=== PATIENT | male | born 1950 | race Caucasian/White ===

== ENCOUNTER 2018-03-07 21:32 | Observation (INO) | payer MEDICARE ==
[2018-03-07 22:09] LABS: ABS Basophils 0.1 10^3/ul (0-0.2); ABS Eosinophils 0.2 10^3/ul (0-0.6); ABS Lymphocytes 2.1 10^3/ul (1.0-4.8); ABS Monocytes 0.6 10^3/ul (0-0.8); ABS Neutrophils 2.6 10^3/ul (1.5-7.7); ABS Nucleated RBC 0 10^3/ul; Hematocrit 40 % (42-52); Hemoglobin 13.5 g/dl (14.0-18.0); Lymphocyte % 37.5 % (25-47); Mean Corpuscular HGB Conc 34 g/dl (31-36); Mean Corpuscular Hemoglobin 27 pg (27-31); Mean Corpuscular Volume 80 fL (80-94); Mean Platelet Volume 7.9 um3 (7.4-10.4); Nucleated Red Blood Cells % 0.1; Platelet Count 183 10^3/ul (150-450); Red Blood Count 5.01 10^6/ul (4.0-5.4); Red Cell Distribution Width 14 % (10.5-15); White Blood Count 5.5 10^3/ul (3.5-10.8)
[2018-03-07 22:20] LABS: INR 0.89 (0.77-1.02)
[2018-03-07 22:26] LABS: EGFR Non-African American 77.7 (>60)
[2018-03-08] MEDS ORDERED: Acetaminophen TAB* 325 MG PO PRN (01:56)
[2018-03-08] MEDS ORDERED: Ondansetron INJ* 2 MG/ML VIAL IV PRN (01:56)
[2018-03-08] MEDS ORDERED: Al Hydrox/Mg Hydrox/Simet LIQ* 30 ML UDC PO ONE (02:06)
[2018-03-08] MEDS ORDERED: Lidocaine 2% VISCOUS* 15 ML UDC PO ONE (02:06)
[2018-03-08] MEDS ORDERED: Potassium Chlor TAB* 20 MEQ TAB.ER PO ONE (02:12)
[2018-03-08] MEDS ORDERED: NS 0.9% 1000 ML* 1,000 ML IV SCH (02:15)
[2018-03-08] MEDS: Heparin VIAL(*) 5000 UNITS/ML VIAL (FIVE THOUSAND) SUBCUT SCH ×3 (05:20→21:22)
--- NOTE | 2018-03-08 05:33 | HP ---
CC: Dr. Larsen * HISTORY AND PHYSICAL: DATE OF ADMISSION: 03/08/18 PRIMARY CARE PROVIDER: Dr. Larsen. ATTENDING PHYSICIAN WHILE IN THE HOSPITAL: Dr. Singh * (report dictated by Timur Welsh NP). CHIEF COMPLAINT: Syncope. HISTORY OF PRESENT ILLNESS: Mr. Young is a 67-year-old male patient, who carries a history of pernicious anemia, hypertension, history of PVCs, micturition syncope, history of skin cancer, and GERD. He comes into the ED today stating that he was having an episode where he in the last couple of days he has been having skipped beats. He has known history of palpitations and PVCs. He also was having issues with reflux, epigastric pressure, and then he did have skipped beats and he was having indigestion-type discomfort. No chest pain or shortness of breath. He tonight had dinner, he drank a beer, started getting epigastric discomfort and pressure. He was belching. He was sitting down, watching TV. The next thing he knew, he woke up and his was over him crying and he said what happened and she said he fainted. He was out for about 20 seconds. He had no chest pain prior to or after. He knew where he was when he woke up. He denied any shortness of breath. He says he has been eating and drinking. His appetite has been good over the last few days. He denied having any pain or abdominal discomfort. He said that belching that he has been doing in the last couple of days. He said that he did not have any palpitations prior to this event tonight. He denied any recent fevers or chills. No vomiting or diarrhea. No abdominal discomfort. He came into the ED today because of this syncopal episode. We were asked to evaluate for admission. PAST MEDICAL HISTORY: Significant for: 1. Pernicious anemia. 2. Hypertension. 3. PVCs. 4. Micturition syncope. 5. Skin cancer. 6. GERD. MEDICATIONS: Home meds include: 1. Multivitamin 1 tablet daily. 2. B12 injection 1000 mcg IM monthly. 3. Atenolol 25 mg p.o. daily. ALLERGIES TO MEDICATIONS: Include SULFA, CIPRO. FAMILY HISTORY: Mother is 93 and she has a history of indigestion, she is still alive. Father has a history of melanoma. SOCIAL HISTORY: He does not smoke, rarely drinks alcohol. Surrogate decision maker is his . He is . REVIEW OF SYSTEMS: There is no documented fever. He denies having any significant weight change. There is no double vision. He denies having any rhinorrhea. There was no sore throat. No thyroid enlargement. Denies having any chest pain. There is palpitation. No shortness of breath. There is no orthopnea. There is no nocturnal dyspnea. He denies having any abdominal pain. He does admit to having epigastric pressure, burning sensation. He denied any nausea or vomiting. No dysuria, no frequency. No seizure. There was loss of consciousness. No pruritus, no skin ulceration. Review of 14 systems completed, all others negative. PHYSICAL EXAMINATION GENERAL: At this time, Mr. Young is a 67-year-old male patient. He is sitting in the ED stretcher. He does not appear to be in any acute distress. VITAL SIGNS: Blood pressure 137/68, pulse 62, respirations 18, O2 sat 96%, temperature 97.6. HEENT: Head: Atraumatic, normocephalic. Eyes: EOMs are intact. Sclerae are anicteric and not pale. Throat: Oral mucosa appears to be moist. No oropharyngeal erythema. NECK: Supple. LUNGS: Clear to auscultation bilaterally. No wheezes, rales, or rhonchi. HEART: Sounds S1, S2. Regular rate and rhythm. No murmurs, rubs, or gallops. ABDOMEN: Soft, flat, nontender. Bowel sounds were present. EXTREMITIES: Pulses were 2+ throughout. Moving all 4 extremities with 5/5 strength. NEUROLOGIC: The patient is awake, he is alert, he is oriented x3. His tongue is midline. Perl Developer were equal. He had no gross focal deficits. SKIN: Grossly intact. DIAGNOSTIC STUDIES/LAB DATA: Today, WBC of 5.5, RBC of 5.01, hemoglobin 13.5, hematocrit 40, platelet count of 183. INR 0.89, PTT of 26.4. Sodium 138, potassium 3.5, chloride 104, bicarb 27, BUN 18, creatinine 0.97, glucose 124, lactate 1.4, calcium 9. Total bili 0.5. Mag 2.2. AST 22, ALT 22, alk phos 66. Troponin was 0.00, repeat was 0. Albumin 3.8. He did have a chest x-ray obtained today. Under my review, I did not appreciate any acute infiltrates or pulmonary edema or effusions. EKG obtained today did show sinus bradycardia, rate of 48. No ST elevations or T- wave inversions. Reviewing previously, his heart rate was 79. Old medical records were reviewed. ASSESSMENT AND PLAN: Mr. Young is a 67-year-old male patient coming in to the emergency department today with complaints of syncopal episode. On evaluation today, he was known to be bradycardic when he first came in at 48. His heart rate now is in the 60s. In addition to this, it was also noted he is having premature ventricular contractions. We were asked to evaluate for admission. He will be admitted under observation status for: 1. Syncope. He has got multifactor etiology. He certainly could be having vasovagal syncope from the epigastric pain and discomfort. However, I do have concern about ischemia. I do think he deserves a stress test. In addition to this, the bradycardia may be contributing, so I have held his beta anton. We may need to cut back on that. In addition to this, he also has been having premature ventricular contractions, so I am questioning he was having any runs of ventricular tachycardia that may have contributed to this. So, I think a stress test is appropriate. Orthostatic. I did recommend a CT brain. The patient did refuse that, so at this point, we will hold off and we will also get orthostatic blood pressure on the patient, hold his beta anton, place him on telemetry, and continue to follow him. 2. Anemia. He can continue his meds as prescribed. His H and H is stable. 3. History of hypertension. Again, blood pressure is stable, it is now here in the 130s. Heart rate has been dipping into the 40s, so I am going to hold off on giving that beta anton for now, may need to lower it or consider another agent. 4. History of premature ventricular contractions. Again, he will be placed on telemetry. His mag was stable and potassium is stable. I will add on a TSH. 5. Gastroesophageal reflux disease and indigestion. He is not on a PPI. This ultimately could be considered. I am going to give him GI cocktail. 6. DVT prophylaxis. He will be placed on heparin subcu. 7. Code status. Full code. 8. Fluids, electrolytes, and nutrition. He will be n.p.o. for stress test in the morning. TIME SPENT: On the admission 60 minutes, greater than half the time was spent face- to-face with the patient obtaining my history and physical; other half time was spent going over the plan of care with the patient and implementing plan of care. I did discuss the plan of care with my attending, Dr. Singh; he is in agreement. TIMUR WELSH, GROUP HOME COUNSELOR [id number]/CPS #: [id number] SOURAV
[2018-03-08 06:26] LABS: ABS Basophils 0 10^3/ul (0-0.2); ABS Eosinophils 0 10^3/ul (0-0.6); ABS Monocytes 0.6 10^3/ul (0-0.8); ABS Nucleated RBC 0 10^3/ul; Eosinophil % 0.5 % (0-6); Hematocrit 41 % (42-52); Hemoglobin 14.1 g/dl (14.0-18.0); Lymphocyte % 15.1 % (25-47); Mean Corpuscular HGB Conc 35 g/dl (31-36); Mean Corpuscular Hemoglobin 28 pg (27-31); Mean Corpuscular Volume 80 fL (80-94); Nucleated Red Blood Cells % 0.1; Platelet Count 166 10^3/ul (150-450); Red Blood Count 5.12 10^6/ul (4.0-5.4); Red Cell Distribution Width 14 % (10.5-15); White Blood Count 6.7 10^3/ul (3.5-10.8)
--- NOTE | 2018-03-08 06:31 | ED ---
Patricia Barrera Rebecca, scribed for Nyasia Ewing MD on 03/07/18 at 2240 . Syncope/Near Syncope - HPI Summary HPI Summary: Pt is a 67 y/o M who presents to ED s/p syncopal episode. Earlier today while at home, the pt was watching t.v., and he leaned forward, fell back, unconscious. Episode was witnessed and the pt's reports that he was unconscious for about 15 seconds. Occurred while he was sitting down - no associated trauma. Pt currently feels significantly better. Additionally c/o N/ V. Notes PVCs and "a lot of burping" for the last few days which has been occurring intermittently for the last 10-15 years. Prior similar episodes - micturition syncope x2. Activities Concierge is Dr. Nunez. - History Of Current Complaint Chief Complaint: EDSyncope Time Seen by Provider: 03/07/18 22:21 Hx Obtained From: Patient Onset/Duration: Sudden Onset, Resolved Timing: Intermittent Episode Lasting - 15 seconds Context: Unwitnessed Activity At Onset: At Rest - Sitting, watching t.v. Associated Head Trauma: No Aggravating Factor(s): Nothing Alleviating Factor(s): Spontaneous Resolution Associated Signs And Symptoms: Other - N/V - Allergies/Home Medications Allergies/Adverse Reactions: Allergies Allergy/AdvReac Type Severity Reaction Status Date / Time Sulfa (Sulfonamide Allergy Swelling Verified 03/07/18 21:41 Antibiotics) Home Medications: Home Medications Atenolol TAB* [Tenormin TAB* 25 MG] 25 mg PO DAILY 03/07/18 [History Confirmed 03/07/18] Cyanocobalamin INJ * [Vitamin B12 INJ *] 1,000 mcg IM MONTHLY 03/07/18 [History Confirmed 03/07/18] Multivit-Min/FA/Lycopen/Lutein [Centrum Silver Men Tablet] 1 each PO DAILY 03/07 [History Confirmed 03/07/18] PMH/Surg Hx/FS Hx/Imm Hx Endocrine/Hematology History: Denies: Hx Anticoagulant Therapy, Hx Diabetes Cardiovascular History: Reports: Hx Hypertension, Other Cardiovascular Problems/ Disorders - PT.STATES ? 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 ~Patient is not in any acute respiratory distress. HEAD AND FACE: Normocephalic EYES: PERRLA, EOMI x 2. EARS: Hearing grossly intact. MOUTH: Oropharynx within normal limits. NECK: Supple, trachea is midline, no adenopathy, no JVD, no carotid bruit. CHEST: Symmetric, no tenderness at palpation LUNGS: Clear to auscultation bilaterally. No wheezing or crackles. CVS: Regular rate and rhythm, S1 and S2 present, no murmurs or gallops appreciated. ABDOMEN: Soft, non-tender. Bowel sounds are normal. No abdominal abnormal pulsations. EXTREMITIES: Full ROM in all major joints, no edema, no cyanosis or clubbing. NEURO: Alert and oriented x 3. No acute neurological deficits. Speech is normal and follows commands. SKIN: Dry and warm Triage Information Reviewed: Yes Vital Signs On Initial Exam: Initial Vitals Temp Pulse Resp BP Pulse Ox 97.6 F 54 16 116/63 99 03/07/18 21:38 03/07/18 21:38 03/07/18 21:38 03/07/18 21:38 03/07/18 21:38 Vital Signs Reviewed: Yes Diagnostics - Vital Signs Vital Signs Temp Pulse Resp BP Pulse Ox 03/07/18 21:38 97.6 F 54 16 116/63 99 - Laboratory Lab Results: Lab Results 03/07/18 03/07/18 03/07/18 Range/Units 21:58 21:58 21:58 WBC 5.5 (3.5-10.8) 10^3/ul RBC 5.01 (4.0-5.4) 10^6/ul Hgb 13.5 L (14.0-18.0) g/dl Hct 40 L (42-52) % MCV 80 (80-94) fL MCH 27 (27-31) pg MCHC 34 (31-36) g/dl RDW 14 (10.5-15) % Plt Count 183 (150-450) 10^3/ul MPV 7.9 (7.4-10.4) um3 Neut % (Auto) 47.5 (38-83) % Lymph % (Auto) 37.5 (25-47) % Mclean % (Auto) 11.0 H (0-7) % Eos % (Auto) 3.0 (0-6) % Baso % (Auto) 1.0 (0-2) % Absolute Neuts (auto) 2.6 (1.5-7.7) 10^3/ul Absolute Lymphs (auto) 2.1 (1.0-4.8) 10^3/ul Absolute Monos (auto) 0.6 (0-0.8) 10^3/ul Absolute Eos (auto) 0.2 (0-0.6) 10^3/ul Absolute Basos (auto) 0.1 (0-0.2) 10^3/ul Absolute Nucleated RBC 0 10^3/ul Nucleated RBC % 0.1 INR (Anticoag Therapy) 0.89 (0.77-1.02) APTT 26.4 (26.0-36.3) seconds Sodium 138 L (139-145) mmol/L Potassium 3.5 (3.5-5.0) mmol/L Chloride 104 (101-111) mmol/L Carbon Dioxide 27 (22-32) mmol/L Anion Gap 7 (2-11) mmol/L BUN 18 (6-24) mg/dL Creatinine 0.97 (0.67-1.17) mg/dL Est GFR ( Amer) 99.9 (>60) Est GFR (Non-Af Amer) 77.7 (>60) BUN/Creatinine Ratio 18.6 (8-20) Glucose 124 H (70-100) mg/dL Lactic Acid (0.5-2.0) mmol/L Calcium 9.0 (8.6-10.3) mg/dL Magnesium 2.2 (1.9-2.7) mg/dL Total Bilirubin 0.50 (0.2-1.0) mg/dL AST 22 (13-39) U/L ALT 22 (7-52) U/L Alkaline Phosphatase 66 (34-104) U/L Troponin I 0.00 (<0.04) ng/mL Total Protein 6.5 (6.4-8.9) g/dL Albumin 3.8 (3.2-5.2) g/dL Globulin 2.7 (2-4) g/dL Albumin/Globulin Ratio 1.4 (1-3) /08/15 Range/Units 21:58 WBC (3.5-10.8) 10^3/ul RBC (4.0-5.4) 10^6/ul Hgb (14.0-18.0) g/dl Hct (42-52) % MCV (80-94) fL MCH (27-31) pg MCHC (31-36) g/dl RDW (10.5-15) % Plt Count (150-450) 10^3/ul MPV (7.4-10.4) um3 Neut % (Auto) (38-83) % Lymph % (Auto) (25-47) % Mclean % (Auto) (0-7) % Eos % (Auto) (0-6) % Baso % (Auto) (0-2) % Absolute Neuts (auto) (1.5-7.7) 10^3/ul Absolute Lymphs (auto) (1.0-4.8) 10^3/ul Absolute Monos (auto) (0-0.8) 10^3/ul Absolute Eos (auto) (0-0.6) 10^3/ul Absolute Basos (auto) (0-0.2) 10^3/ul Absolute Nucleated RBC 10^3/ul Nucleated RBC % INR (Anticoag Therapy) (0.77-1.02) APTT (26.0-36.3) seconds Sodium (139-145) mmol/L Potassium (3.5-5.0) mmol/L Chloride (101-111) mmol/L Carbon Dioxide (22-32) mmol/L Anion Gap (2-11) mmol/L BUN (6-24) mg/dL Creatinine (0.67-1.17) mg/dL Est GFR ( Amer) (>60) Est GFR (Non-Af Amer) (>60) BUN/Creatinine Ratio (8-20) Glucose (70-100) mg/dL Lactic Acid 1.4 (0.5-2.0) mmol/L Calcium (8.6-10.3) mg/dL Magnesium (1.9-2.7) mg/dL Total Bilirubin (0.2-1.0) mg/dL AST (13-39) U/L ALT (7-52) U/L Alkaline Phosphatase (34-104) U/L Troponin I (<0.04) ng/mL Total Protein (6.4-8.9) g/dL Albumin (3.2-5.2) g/dL Globulin (2-4) g/dL Albumin/Globulin Ratio (1-3) Result Diagrams: 03/07/18 21:58 03/07/18 21:58 Lab Statement: Any lab studies that have been ordered have been reviewed, and results considered in the medical decision making process. - Radiology CXR Xray Interpretation: No Acute Changes - No PNA Radiology Interpretation Completed By: ED Physician - EKG 2141 Cardiac Rate: Bradycardia - 48 bpm EKG Rhythm: Sinus Bradycardia EKG Interpretation: Prolonged NV of 248 Course/Dx Assessment/Plan: Pt is a 67 y/o M who presents to ED s/p witnessed syncopal episode that lasted 15 seconds without any associated trauma, and additionally c/o N/V, PVCs and "a lot of burping." His workup is unremarkable. Given history of arrhythmia, will admit for syncope evaluation. Discussed case with the hospitalist. - Diagnoses Provider Diagnoses: Syncope - Physician Notifications Discussed Care of Patient With: Fito Singh Time Discussed With Above Provider: 00:37 Instructed by Provider To: Other - Accepts pt for admission. Discharge - Sign-Out/Discharge Documenting (check all that apply): Discharge/Admit/Transfer - Admit - Discharge Plan Condition: Stable Disposition: ADMITTED TO [facility] Referrals: Devin Larsen MD [Primary Care Provider] - The documentation as recorded by the Patricia casas Rebecca accurately reflects the service I personally performed and the decisions made by me, Nyasia Ewing MD.
[2018-03-08 06:42] LABS: EGFR Non-African American 82.6 (>60)
--- NOTE | 2018-03-08 07:34 | RAD ---
INDICATION: Chest pain COMPARISON: December 18, 2011 TECHNIQUE: An AP portable view obtained at 2210 hours is submitted. FINDINGS: Bones/Soft Tissues: There are no acute bony findings. Cardiomediastinal: The cardiomediastinal silhouette is normal. Lungs: There are no acute infiltrates. There is suspected mild chronic lingular airspace disease. Pleura: There are no pleural effusions. Other: None IMPRESSION: No active disease or interval change.
--- NOTE | 2018-03-08 13:49 | ECHO ---
Patient: SATISH CHIN [facility] Rec#: [id number] : 1950 Date: 03/08/2018 Age: 67y Height: 182.88 cm / 72.0 in Weight: 112.04 kg / 246.9 lbs Sex: M BSA: 2.33 Room#: [facility] Admit Date#: 03/08/2018 Type: Inpatient Referring: Pierce Welsh NP Reading: Hilda Reeves MD Transitional Care Nurse: Leanna Au RDCS CC: Devin Larsen MD Transthoracic Echocardiogram Indication: Syncope BP: 148/82 HR: 51 Rhythm: Bradycardia Findings History: HTN, pernicious anemia, PVCs, micturation syncope, GERD. Technical Comments: The study quality is fair. Completed at 1220. Left Ventricle: The left ventricular chamber size is normal. Moderate concentric left ventricular hypertrophy is observed. Global left ventricular wall motion and contractility are within normal limits. There is normal left ventricular systolic function. The estimated ejection fraction is 55-60%. Abnormal left ventricular diastolic function is observed. Abnormal left ventricular diastolic filling is observed, consistent with impaired relaxation. Left Atrium: The left atrium is mildly dilated. Right Ventricle: Moderator Band present. The right ventricle is mild to moderately dilated. The right ventricular global systolic function is normal. Right Atrium: The right atrium is moderately dilated. Aortic Valve: The aortic valve is trileaflet. The aortic valve leaflets are mildly thickened. There is mild aortic regurgitation. There is no evidence of aortic stenosis. Mitral Valve: The mitral valve leaflets are mildly thickened. There is prolapse of the posterior leaflet of the mitral valve. There is trace to mild mitral regurgitation. There is no evidence of mitral stenosis. Tricuspid Valve: The tricuspid valve leaflets are normal. There is a physiologic tricuspid regurgitation. The right ventricular systolic pressure is estimated at 19 mmHg. No pulmonary hypertension is noted. There is no tricuspid stenosis. Pulmonic Valve: The pulmonic valve appears normal. There is mild pulmonic regurgitation. There is no pulmonic stenosis. Pericardium: There is no significant pericardial effusion. A pericardial fat pad is visualized. Aorta: There is mild dilatation of the ascending aorta. There is no dilatation of the aortic arch. There is mild dilatation of the aortic root. Pulmonary Artery: The main pulmonary artery appears normal. Venous: The inferior vena cava appears normal in size. There is a greater than 50% respiratory change in the inferior vena cava dimension. Summary: There was not any prior study for comparison. Conclusions The left ventricular chamber size is normal. Moderate concentric left ventricular hypertrophy is observed. The estimated ejection fraction is 55-60%. Abnormal left ventricular diastolic function is observed. The left atrium is mildly dilated. There is mild aortic regurgitation. There is trace to mild mitral regurgitation. There is mild pulmonic regurgitation. Measurements Name Value Normal Range RVIDd (AP) 2D 3.3 cm (0.9 - 2.6) RVDdMajor (2D) 5 cm (2.2 - 4.4) RAd ISD 4CH 5.7 cm (3.4 - 4.9) RA (A4C)W 5.2 cm (2.9 - 4.6) IVSd (2D) 1.4 cm (0.6 - 1) LVPWd (2D) 1.3 cm (0.6 - 1) LVIDd (2D) 4.8 cm (3.6 - 5.4) LVIDs (2D) 3.3 cm - LV FS (2D) 33 % (25 - 45) Aortic Annulus 2.3 cm (1.4 - 2.6) Ao root diameter (2D) 3.8 cm (2.1 - 3.5) Ascending Ao 3.7 cm (2.1 - 3.4) Aortic arch 3 cm (1.8 - 3.4) LA dimension (AP) 2D 4.1 cm (2.3 - 3.8) LAd ISD 4CH 5.1 cm (2.9 - 5.3) LA ISD 4CH W 4.5 cm (2.5 - 4.5) Name Value Normal Range LA ESV SP 4CH (A/L) 89 ml - LA ESV SP 2CH (A/L) 58 ml - LA ESV BP (A/L) 78 ml - LA ESV BP (A/L) index 34 ml/m2 - LA ESV SP 4CH (MOD) 76 ml - LA ESV SP 2CH (MOD) 54 ml - Name Value Normal Range MV E-wave Vmax 0.56 m/sec - MV deceleration time 240.72 msec - MV A-wave Vmax 0.89 m/sec - MV E:A ratio 0.63 ratio - LV septal e' Vmax 0.08 m/sec - LV lateral e' Vmax 0.06 m/sec - LV E:e' septal ratio 7 ratio - LV E:e' lateral ratio 9.33 ratio - Name Value Normal Range AV Vmax 1.05 m/sec - AV VTI 25.91 cm - AV peak gradient 4.46 mmHg - AV mean gradient 2.25 mmHg - LVOT Vmax 1.02 m/sec - LVOT VTI 24.9 cm - LVOT peak gradient 4.17 mmHg - LVOT mean gradient 2.14 mmHg - AR PHT 746 msec - AR peak gradient 57 mmHg - EDUAR Vmax 0.78 m/sec - Name Value Normal Range TR Vmax 2 m/sec - TR peak gradient 16 mmHg - RAP 3 mmHg - RVSP 19 mmHg - IVC diameter 0.9 cm - Name Value Normal Range PV Vmax 0.89 m/sec - PV peak gradient 3.21 mmHg - IN end-diastolic Vmax 1.06 m/sec -
--- NOTE | 2018-03-08 14:04 | RAD ---
INDICATION: Chest pain COMPARISON: None TECHNIQUE: A single day SPECT protocol was utilized. Rest images were acquired following the intravenous injection of 10.7 millicuries of technetium 99m tetrofosmin. Exercise stress images were acquired following the intravenous administration of 25.4 millicuries of technetium 99m tetrofosmin. This examination is limited by lack of CT attenuation correction due to shoulder pain and decreased mobility. The patient was exercised to a peak heart rate of 155 which is 94 of age predicted maximum. FINDINGS: The tomographic images best show decreased activity in the lateral wall near the base the heart with findings suggestive of ischemia. There are no additional apparent defects or stress-induced or fixed nature. The cardiac chamber size is normal. There are no wall motion abnormalities. The ejection fraction is calculated at 58 percent during stress. IMPRESSION: DECREASED ACTIVITY IN THE LATERAL WALL SUGGESTIVE OF A LATERAL WALL INFARCT WITH SUSPECTED PUSHPA-INFARCT ISCHEMIA. ASSESSMENT: INTERMEDIATE-RISK Based on imaging criteria from ACC/AHA 2002 Guideline Update for the Management of Patients With Chronic Stable Angina Table 23. Noninvasive Risk Stratification. Reference. HIGH-RISK (GREATER THAN 3% ANNUAL MORTALITY RATE) - Severe resting left ventricular dysfunction (LVEF < 35%) - Severe exercise left ventricular dysfunction (exercise LVEF < 35%) - Stress-induced large perfusion defect (particularly if anterior) - Stress-induced multiple perfusion defects of moderate size - Large, fixed perfusion defect with LV dilation or increased lung uptake (thallium-201) - Stress-induced moderate perfusion defect with LV dilation or increased lung uptake (thallium-201) INTERMEDIATE-RISK (1%-3% ANNUAL MORTALITY RATE) - Mild/moderate resting left ventricular dysfunction (LVEF = 35% to 49%) - Stress-induced moderate perfusion defect without LV dilation or increased lung intake (thallium-201) LOW-RISK (LESS THAN 1% ANNUAL MORTALITY RATE) - Normal or small myocardial perfusion defect at rest or with stress
--- NOTE | 2018-03-08 16:03 | PN ---
Subjective Date of Service: 03/08/18 Interval History: Denies chest pain or shortness of breath, denies dizziness or lightheadedness. Denies abd pain, nausea, vomiting or diarrhea. Family History: Unchanged from Admission Social History: Unchanged from Admission Past Medical History: Unchanged from Admission Objective Active Medications: Acetaminophen (Tylenol Tab*) 650 mg PO Q4H PRN PRN Reason: FEVER/PAIN Heparin Sodium (Porcine) (Heparin Vial(*)) 5,000 units SUBCUT Q8HR JAM Last Admin: 03/08/18 13:38 Dose: Not Given Ondansetron HCl (Zofran Inj*) 4 mg IV Q6H PRN PRN Reason: NAUSEA Vital Signs - 8 hr 03/08/18 03/08/18 11:24 15:34 Temperature 97.4 F 97.7 F Pulse Rate 57 54 Respiratory 14 16 Rate Blood Pressure 141/75 138/71 (mmHg) O2 Sat by Pulse 98 98 Oximetry Oxygen Devices in Use Now: None Appearance: appears comfortable lying in bed, no acute distress Eyes: No Scleral Icterus Ears/Nose/Mouth/Throat: Clear Oropharnyx, Mucous Membranes Moist Neck: NL Appearance and Movements; NL JVP, Trachea Midline Respiratory: Symmetrical Chest Expansion and Respiratory Effort, Clear to Auscultation Cardiovascular: NL Sounds; No Murmurs; No JVD Abdominal: NL Sounds; No Tenderness; No Distention Extremities: No Edema, No Clubbing, Cyanosis Skin: No Rash or Ulcers Neurological: Alert and Oriented x 3, NL Gait, NL Muscle Strength and Tone Nutrition: Taking PO's Result Diagrams: 03/08/18 06:08 03/08/18 06:08 Additional Lab and Data: Lab Results 03/07/18 03/07/18 03/07/18 Range/Units 21:58 21:58 21:58 WBC 5.5 (3.5-10.8) 10^3/ul RBC 5.01 (4.0-5.4) 10^6/ul Hgb 13.5 L (14.0-18.0) g/dl Hct 40 L (42-52) % MCV 80 (80-94) fL MCH 27 (27-31) pg MCHC 34 (31-36) g/dl RDW 14 (10.5-15) % Plt Count 183 (150-450) 10^3/ul MPV 7.9 (7.4-10.4) um3 Neut % (Auto) 47.5 (38-83) % Lymph % (Auto) 37.5 (25-47) % Cocke % (Auto) 11.0 H (0-7) % Eos % (Auto) 3.0 (0-6) % Baso % (Auto) 1.0 (0-2) % Absolute Neuts (auto) 2.6 (1.5-7.7) 10^3/ul Absolute Lymphs (auto) 2.1 (1.0-4.8) 10^3/ul Absolute Monos (auto) 0.6 (0-0.8) 10^3/ul Absolute Eos (auto) 0.2 (0-0.6) 10^3/ul Absolute Basos (auto) 0.1 (0-0.2) 10^3/ul Absolute Nucleated RBC 0 10^3/ul Nucleated RBC % 0.1 INR (Anticoag Therapy) 0.89 (0.77-1.02) APTT 26.4 (26.0-36.3) seconds Sodium 138 L (139-145) mmol/L Potassium 3.5 (3.5-5.0) mmol/L Chloride 104 (101-111) mmol/L Carbon Dioxide 27 (22-32) mmol/L Anion Gap 7 (2-11) mmol/L BUN 18 (6-24) mg/dL Creatinine 0.97 (0.67-1.17) mg/dL Est GFR ( Amer) 99.9 (>60) Est GFR (Non-Af Amer) 77.7 (>60) BUN/Creatinine Ratio 18.6 (8-20) Glucose 124 H (70-100) mg/dL Lactic Acid (0.5-2.0) mmol/L Calcium 9.0 (8.6-10.3) mg/dL Magnesium 2.2 (1.9-2.7) mg/dL Total Bilirubin 0.50 (0.2-1.0) mg/dL AST 22 (13-39) U/L ALT 22 (7-52) U/L Alkaline Phosphatase 66 (34-104) U/L Troponin I 0.00 (<0.04) ng/mL Total Protein 6.5 (6.4-8.9) g/dL Albumin 3.8 (3.2-5.2) g/dL Globulin 2.7 (2-4) g/dL Albumin/Globulin Ratio 1.4 (1-3) /08/15 Range/Units 21:58 WBC (3.5-10.8) 10^3/ul RBC (4.0-5.4) 10^6/ul Hgb (14.0-18.0) g/dl Hct (42-52) % MCV (80-94) fL MCH (27-31) pg MCHC (31-36) g/dl RDW (10.5-15) % Plt Count (150-450) 10^3/ul MPV (7.4-10.4) um3 Neut % (Auto) (38-83) % Lymph % (Auto) (25-47) % Cocke % (Auto) (0-7) % Eos % (Auto) (0-6) % Baso % (Auto) (0-2) % Absolute Neuts (auto) (1.5-7.7) 10^3/ul Absolute Lymphs (auto) (1.0-4.8) 10^3/ul Absolute Monos (auto) (0-0.8) 10^3/ul Absolute Eos (auto) (0-0.6) 10^3/ul Absolute Basos (auto) (0-0.2) 10^3/ul Absolute Nucleated RBC 10^3/ul Nucleated RBC % INR (Anticoag Therapy) (0.77-1.02) APTT (26.0-36.3) seconds Sodium (139-145) mmol/L Potassium (3.5-5.0) mmol/L Chloride (101-111) mmol/L Carbon Dioxide (22-32) mmol/L Anion Gap (2-11) mmol/L BUN (6-24) mg/dL Creatinine (0.67-1.17) mg/dL Est GFR ( Amer) (>60) Est GFR (Non-Af Amer) (>60) BUN/Creatinine Ratio (8-20) Glucose (70-100) mg/dL Lactic Acid 1.4 (0.5-2.0) mmol/L Calcium (8.6-10.3) mg/dL Magnesium (1.9-2.7) mg/dL Total Bilirubin (0.2-1.0) mg/dL AST (13-39) U/L ALT (7-52) U/L Alkaline Phosphatase (34-104) U/L Troponin I (<0.04) ng/mL Total Protein (6.4-8.9) g/dL Albumin (3.2-5.2) g/dL Globulin (2-4) g/dL Albumin/Globulin Ratio (1-3) Assess/Plan/Problems-Billing Assessment: Mr. Young is a 67 y.o male with Pernicious anemia, HTN, PVCs, micturition syncope, skin cancer, GERD who presented to the emergency room after approx 20 second syncopal episode. - Patient Problems (1) Syncope Current Visit: Yes Status: Acute Code(s): R55 - SYNCOPE AND COLLAPSE SNOMED Code(s): 367881760 Comment: -echo EF within normal limits 55-60% - Nuclear stress showed- intermediate risk- DECREASED ACTIVITY IN THE LATERAL WALL SUGGESTIVE OF A LATERAL WALL INFARCT WITH SUSPECTED PUSHPA-INFARCT ISCHEMIA. - Consulted Cardiology - Patient will need cardiac cath- scheduled for tomorrow - Will place on statin therapy and ASA (2) Elevated TSH Current Visit: Yes Status: Acute Code(s): R94.6 - ABNORMAL RESULTS OF THYROID FUNCTION STUDIES SNOMED Code(s): 086877150 Comment: -TSH- 7.05, will add free T4 and T3- pending at this time - Patient does report weight gain (3) Hypertension Current Visit: Yes Status: Acute Code(s): I10 - ESSENTIAL (PRIMARY) HYPERTENSION SNOMED Code(s): 97999842 Comment: - will continue Atenolol (4) PVC (premature ventricular contraction) Current Visit: Yes Status: Acute Code(s): I49.3 - VENTRICULAR PREMATURE DEPOLARIZATION SNOMED Code(s): 79011804 Comment: - subsided with excercise - has had PVC's for many years and is seen by Dr. Nunez - Echo with mild MVP EF with 55-60 % (5) DVT prophylaxis Current Visit: Yes Status: Acute Code(s): OHH6313 - SNOMED Code(s): 135065535 Comment: - heparin subQ- patient is refusing (6) Full code status Current Visit: Yes Status: Acute Code(s): Z78.9 - OTHER SPECIFIED HEALTH STATUS SNOMED Code(s): 813524446 Status and Disposition: inpatient - cath tomorrow
[2018-03-08] MEDS ORDERED: Diazepam TAB(*) 5 MG PO ONE (17:30)
[2018-03-08] MEDS: Atenolol TAB* 25 MG PO SCH (17:58)
[2018-03-08] MEDS ORDERED: Aspirin TAB* 325 MG PO ONE (18:00)
[2018-03-08] MEDS ORDERED: Aspirin 81 mg CHEW TAB* 81 MG TAB.CHEW PO SCH (18:00)
--- NOTE | 2018-03-08 21:35 | CONS ---
CC: Dr. Nunez; Dr. Reeves; Hospitalist Service; Dr. Larsen CARDIOLOGY CONSULTATION REPORT: DATE OF CONSULT: 03/08/18 HISTORY OF PRESENT ILLNESS: I was asked by the hospitalist service to see this 67- year-old male patient who followed up with Dr. Nunez from cardiac standpoint with known history of PVCs. I was asked to see him because of syncope and abnormal nuclear Myoview stress test. The patient does have a known history of PVCs and history of systemic arterial hypertension, obesity, sleep apnea and hyperlipidemia. He was on atenolol beta-anton as an outpatient for his PVCs and hypertension. He said yesterday he was sitting after dinner and in chair watching TV and he passed out. He was brought into the emergency room and subsequently was hospitalized. He was ruled out for myocardial infarction by negative troponins. He underwent Myoview nuclear stress test and his EKG stress portion was abnormal, low to intermediate risk as per Dr. Hardy's interpretation. He did have a resting and recovery PVCs, although his PVCs were decreased during exercise part, but he had late recovery EKG changes inferolateral, specifically in leads II, III aVF and V5 to V6 with some subtle downsloping concerning, although he did have hypertensive response to exercise. The patient never had symptoms of chest pain. No orthopnea. No PNDs. No nausea. No vomiting in the past. No hematochezia. No skin rash. No abdominal pain. No history of myocardial infarction. No history of diabetes appreciated. No fever. No chills. No acute illness. Cardiology consult was further requested to evaluate and consideration to evaluate his abnormal nuclear Myoview stress test. PAST MEDICAL HISTORY: Includes pernicious anemia, systemic arterial hypertension, PVCs, hyperlipidemia, history of possible sleep apnea, although he was never tested, history of gastroesophageal reflux disease and skin cancer. MEDICATIONS: His medications as an outpatient include: 1. Atenolol 25 mg daily. 2. Vitamin B12 injection 1000 mcg intramuscular monthly. 3. Multivitamins daily. ALLERGIES: He is allergic to SULFA and CIPRO. FAMILY HISTORY: No family history of premature coronary artery disease. SOCIAL HISTORY: He drinks alcohol mildly. No history of illicit drug use. REVIEW OF SYSTEMS: Review of all other systems essentially is negative. PHYSICAL EXAM: He is awake, alert, and oriented. He is not in acute distress. chest pain free. His vitals reveal blood pressure 130/70; pulse 70, he is sinus rhythm. Head and Neck Exam: Normocephalic and atraumatic head. Ears, Nose, and Throat: Essentially benign. Neck: Supple. JVP is not elevated. No carotid bruits. No masses in the neck are appreciated. Chest: Clear to auscultation. No rales, no wheezes. No added sounds appreciated. Heart: Normal, regular S1, S2. No added sounds. No gallops. No rubs. Abdomen: Benign, obese. Positive bowel sounds. Extremities: No edema, no cyanosis, no clubbing. Skin exam is normal. Psych: Normal affect and mood. 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 DIAGNOSTIC STUDIES/LAB DATA: White blood cell is 6.7, hemoglobin 14.1, hematocrit 41, and platelets 166,000. His chemistry; sodium is 138, potassium 4.5, chloride 106, total CO2 of 31, BUN 16, creatinine 0.92. Troponins were 0. His EKG showed normal sinus rhythm. No acute ST-T changes. His echocardiogram showed him to have normal left ventricular systolic function and no obvious wall motion abnormality appreciated and mild aortic insufficiency, trace to mild mitral insufficiency and mild pulmonic insufficiency. IMPRESSION: The patient is a 67-year-old male patient with: 1. Presentation with syncope to be further evaluated in a setting of PVCs and abnormal nuclear Myoview stress test. 2. Abnormal nuclear Myoview stress test for inferolateral wall reversible ischemia was intermediate risk and abnormal by the exercise EKG portion as per Dr. Hardy, concerning for inferolateral ischemia, coronary artery disease. 3. Systemic arterial hypertension. 4. Hyperlipidemia. 5. Sleep apnea, although he was never tested. 6. Obesity. 7. Known history of frequent PVCs. PLAN: This patient needs a cardiac catheterization based on his syncope, ventricular arrhythmia and abnormal nuclear Myoview stress test, his EKG portion and the nuclear images portion. I had a lengthy talk with the patient and discussion about the above as well as I discussed him with Dr. Hardy at length who did talk and interviewed for the patient and I understand he is willing to proceed with the cardiac catheterization. Any further recommendations will be based on the results of his cardiac catheterization. Meanwhile, he is to continue on aspirin, beta-anton, statin treatment. Please refer to a separate full report as per Dr. Hardy. I answered all of his concerns and questions up to his satisfaction. More than half of at least 60 to 65 plus minutes was in the education and counseling mode , answering all of the above concerns and questions and making further recommendations. I discussed him with the hospitalist service. [id number]/[facility] #: [id number] SOURAV
[2018-03-09] MEDS ORDERED: NS 0.9% 1000 ML* 1,000 ML IV SCH ×2 (06:00→11:15)
[2018-03-09] MEDS ORDERED: Aspirin 81 mg CHEW TAB* 81 MG TAB.CHEW PO SCH (06:00)
[2018-03-09] MEDS ORDERED: fentaNYL* 50 MCG/ML 2 ML VIAL (100 MCG VIAL) ONE (08:22)
[2018-03-09] MEDS ORDERED: Heparin(*) 1000 UNIT/ML 10 ML VIAL CATH LAB IV ONE (08:22)
[2018-03-09] MEDS ORDERED: nitroGLYCERIN DRIP* 25,000 MCG/250 ML BTL ONE (08:23)
[2018-03-09] MEDS ORDERED: Iohexol 350 (CONTRAST) 200 ML MDV IV ONE ×2 (08:23→10:01)
[2018-03-09] MEDS ORDERED: Lidocaine 1% INJ* 10 MG/ML 30 ML SDV ONE (08:23)
[2018-03-09] MEDS ORDERED: Heparin 2 UNITS/ML IVPREMIX* 2,000 ML IV ONE (08:23)
[2018-03-09] MEDS ORDERED: Midazolam* 1 MG/ML 10 ML VIAL (10 MG) ONE (08:24)
[2018-03-09] MEDS ORDERED: VERAPAMIL 2.5 MG/ML 2 ML VIAL ** 5 mg/2 ml ONE (09:07)
[2018-03-09] MEDS ORDERED: Bivalirudin(*) 250 MG VIAL ONE (09:38)
[2018-03-09] MEDS ORDERED: Ticagrelor* 90 MG TAB PO ONE (09:53)
[2018-03-09] MEDS: Heparin VIAL(*) 5000 UNITS/ML VIAL (FIVE THOUSAND) SUBCUT SCH (09:54)
[2018-03-09] MEDS: Atenolol TAB* 25 MG PO SCH (11:29)
--- NOTE | 2018-03-09 11:51 | PN ---
Subjective Date of Service: 03/09/18 Interval History: denies chest pain or shortness of breath, Denies abd pain, n/v/d. reports that his PVC's subsided during the night but returned this AM after drinking water to take his aspirin. Family History: Unchanged from Admission Social History: Unchanged from Admission Past Medical History: Unchanged from Admission Objective Active Medications: Acetaminophen (Tylenol Tab*) 650 mg PO Q4H PRN PRN Reason: FEVER/PAIN Aspirin (Aspirin 81 Mg Chew Tab*) 81 mg PO DAILY [facility] Last Admin: 03/09/18 06:34 Dose: 81 mg Atenolol (Tenormin Tab*) 25 mg PO DAILY [facility] Last Admin: 03/09/18 11:29 Dose: Not Given Atorvastatin Calcium (Lipitor*) 20 mg PO 1700 [facility] Heparin Sodium (Porcine) (Heparin Vial(*)) 5,000 units SUBCUT Q8HR [facility] Last Admin: 03/09/18 09:54 Dose: Not Given Sodium Chloride (Ns 0.9% 1000 Ml*) 1,000 mls @ 100 mls/hr IV .per rate [facility] Last Admin: 03/09/18 06:17 Dose: 100 mls/hr Sodium Chloride (Ns 0.9% 1000 Ml*) 1,000 mls @ 125 mls/hr IV .per rate [facility] Stop: 03/09/18 15:14 Ondansetron HCl (Zofran Inj*) 4 mg IV Q6H PRN PRN Reason: NAUSEA Vital Signs - 8 hr 03/09/18 03/09/18 03/09/18 07:54 08:00 08:59 Temperature 97.8 F Pulse Rate 62 Respiratory 16 20 20 Rate Blood Pressure 131/70 (mmHg) O2 Sat by Pulse 97 Oximetry 03/09/18 03/09/18 03/09/18 10:39 10:45 10:52 Temperature 97.4 F Pulse Rate 59 Respiratory 17 13 14 Rate Blood Pressure 126/75 145/81 145/81 (mmHg) O2 Sat by Pulse 96 Oximetry 03/09/18 11:18 Temperature 97.4 F Pulse Rate Respiratory Rate Blood Pressure (mmHg) O2 Sat by Pulse Oximetry Oxygen Devices in Use Now: None Appearance: appears comfortable sitting on the bed, no acute distress, mildly anxious about pending Cardiac cath this AM. Eyes: No Scleral Icterus Ears/Nose/Mouth/Throat: Mucous Membranes Moist Neck: NL Appearance and Movements; NL JVP, Trachea Midline Respiratory: Symmetrical Chest Expansion and Respiratory Effort, Clear to Auscultation Cardiovascular: NL Sounds; No Murmurs; No JVD, No Edema Abdominal: NL Sounds; No Tenderness; No Distention Extremities: No Edema, No Clubbing, Cyanosis Skin: No Rash or Ulcers Neurological: Alert and Oriented x 3, NL Gait, NL Muscle Strength and Tone Nutrition: Taking PO's Result Diagrams: 03/08/18 06:08 03/08/18 06:08 Additional Lab and Data: Lab Results 03/07/18 03/07/18 03/07/18 Range/Units 21:58 21:58 21:58 WBC 5.5 (3.5-10.8) 10^3/ul RBC 5.01 (4.0-5.4) 10^6/ul Hgb 13.5 L (14.0-18.0) g/dl Hct 40 L (42-52) % MCV 80 (80-94) fL MCH 27 (27-31) pg MCHC 34 (31-36) g/dl RDW 14 (10.5-15) % Plt Count 183 (150-450) 10^3/ul MPV 7.9 (7.4-10.4) um3 Neut % (Auto) 47.5 (38-83) % Lymph % (Auto) 37.5 (25-47) % Grimes % (Auto) 11.0 H (0-7) % Eos % (Auto) 3.0 (0-6) % Baso % (Auto) 1.0 (0-2) % Absolute Neuts (auto) 2.6 (1.5-7.7) 10^3/ul Absolute Lymphs (auto) 2.1 (1.0-4.8) 10^3/ul Absolute Monos (auto) 0.6 (0-0.8) 10^3/ul Absolute Eos (auto) 0.2 (0-0.6) 10^3/ul Absolute Basos (auto) 0.1 (0-0.2) 10^3/ul Absolute Nucleated RBC 0 10^3/ul Nucleated RBC % 0.1 INR (Anticoag Therapy) 0.89 (0.77-1.02) APTT 26.4 (26.0-36.3) seconds Sodium 138 L (139-145) mmol/L Potassium 3.5 (3.5-5.0) mmol/L Chloride 104 (101-111) mmol/L Carbon Dioxide 27 (22-32) mmol/L Anion Gap 7 (2-11) mmol/L BUN 18 (6-24) mg/dL Creatinine 0.97 (0.67-1.17) mg/dL Est GFR ( Amer) 99.9 (>60) Est GFR (Non-Af Amer) 77.7 (>60) BUN/Creatinine Ratio 18.6 (8-20) Glucose 124 H (70-100) mg/dL Lactic Acid (0.5-2.0) mmol/L Calcium 9.0 (8.6-10.3) mg/dL Magnesium 2.2 (1.9-2.7) mg/dL Total Bilirubin 0.50 (0.2-1.0) mg/dL AST 22 (13-39) U/L ALT 22 (7-52) U/L Alkaline Phosphatase 66 (34-104) U/L Troponin I 0.00 (<0.04) ng/mL Total Protein 6.5 (6.4-8.9) g/dL Albumin 3.8 (3.2-5.2) g/dL Globulin 2.7 (2-4) g/dL Albumin/Globulin Ratio 1.4 (1-3) /08/15 Range/Units 21:58 WBC (3.5-10.8) 10^3/ul RBC (4.0-5.4) 10^6/ul Hgb (14.0-18.0) g/dl Hct (42-52) % MCV (80-94) fL MCH (27-31) pg MCHC (31-36) g/dl RDW (10.5-15) % Plt Count (150-450) 10^3/ul MPV (7.4-10.4) um3 Neut % (Auto) (38-83) % Lymph % (Auto) (25-47) % Grimes % (Auto) (0-7) % Eos % (Auto) (0-6) % Baso % (Auto) (0-2) % Absolute Neuts (auto) (1.5-7.7) 10^3/ul Absolute Lymphs (auto) (1.0-4.8) 10^3/ul Absolute Monos (auto) (0-0.8) 10^3/ul Absolute Eos (auto) (0-0.6) 10^3/ul Absolute Basos (auto) (0-0.2) 10^3/ul Absolute Nucleated RBC 10^3/ul Nucleated RBC % INR (Anticoag Therapy) (0.77-1.02) APTT (26.0-36.3) seconds Sodium (139-145) mmol/L Potassium (3.5-5.0) mmol/L Chloride (101-111) mmol/L Carbon Dioxide (22-32) mmol/L Anion Gap (2-11) mmol/L BUN (6-24) mg/dL Creatinine (0.67-1.17) mg/dL Est GFR ( Amer) (>60) Est GFR (Non-Af Amer) (>60) BUN/Creatinine Ratio (8-20) Glucose (70-100) mg/dL Lactic Acid 1.4 (0.5-2.0) mmol/L Calcium (8.6-10.3) mg/dL Magnesium (1.9-2.7) mg/dL Total Bilirubin (0.2-1.0) mg/dL AST (13-39) U/L ALT (7-52) U/L Alkaline Phosphatase (34-104) U/L Troponin I (<0.04) ng/mL Total Protein (6.4-8.9) g/dL Albumin (3.2-5.2) g/dL Globulin (2-4) g/dL Albumin/Globulin Ratio (1-3) Assess/Plan/Problems-Billing Assessment: Mr. Young is a 67 y.o male with Pernicious anemia, HTN, PVCs, micturition syncope, skin cancer, GERD who presented to the emergency room after approx 20 second syncopal episode. - Patient Problems (1) Syncope Current Visit: Yes Status: Acute Code(s): R55 - SYNCOPE AND COLLAPSE SNOMED Code(s): 613432759 Comment: -echo EF within normal limits 55-60% - Nuclear stress showed- intermediate risk- DECREASED ACTIVITY IN THE LATERAL WALL SUGGESTIVE OF A LATERAL WALL INFARCT WITH SUSPECTED PUSHPA-INFARCT ISCHEMIA. - Consulted Cardiology - cardiac cath- today - Will continue statin therapy and ASA (2) CAD (coronary artery disease), [place] coronary artery Current Visit: Yes Status: Acute Code(s): I25.10 - ATHSCL HEART DISEASE OF [place] CORONARY ARTERY W/O ANG PCTRS SNOMED Code(s): 5747796816105 Comment: Cardiac Cath- showed multi-vessel disease - will transfer to [facility] to Dr. Reynoso for CABG today - transfer set up by Dr. Reeves - continue ASA 81 mg daily - Continue Atenolol - continue atrovastatin (3) Elevated TSH Current Visit: Yes Status: Acute Code(s): R94.6 - ABNORMAL RESULTS OF THYROID FUNCTION STUDIES SNOMED Code(s): 672869634 Comment: -TSH- 7.05, - Free T4 WNL - T3 low at 0.85 - Patient does report weight gain - Would recommend follow up as outpatient (4) Hypertension Current Visit: Yes Status: Acute Code(s): I10 - ESSENTIAL (PRIMARY) HYPERTENSION SNOMED Code(s): 65364973 Comment: - will continue Atenolol (5) PVC (premature ventricular contraction) Current Visit: Yes Status: Acute Code(s): I49.3 - VENTRICULAR PREMATURE DEPOLARIZATION SNOMED Code(s): 79100981 Comment: - subsided with excercise - has had PVC's for many years and is seen by Dr. Nunez - Echo with mild MVP EF with 55-60 % (6) DVT prophylaxis Current Visit: Yes Status: Acute Code(s): GOW2720 - SNOMED Code(s): 422644191 Comment: - heparin subQ- patient is refusing (7) Full code status Current Visit: Yes Status: Acute Code(s): Z78.9 - OTHER SPECIFIED HEALTH STATUS SNOMED Code(s): 169175773 Status and Disposition: inpatient - cath tomorrow
--- NOTE | 2018-03-09 12:29 | CATH ---
CC: Dr. Leoncio Nunez; Dr. Devin Larsen; Dr. Agusto Gilmore, [facility], Department of Cardiovascular Surgery CARDIAC CATHETERIZATION REPORT: DATE OF PROCEDURE: 03/09/18 INDICATION FOR THE PROCEDURE: The patient with syncopal event out of hospital with abnormal exercise nuclear stress test suggesting an area of potential severe ischemia to the posterolateral wall. There was also suggestive findings of ischemia to the proximal inferior wall. PROCEDURE: Coronary arteriography, left heart catheterization, left ventriculography. The patient was interviewed and examined on the floor of the hospital where the risks and benefits were explained. He understood them and wished to proceed. The right radial artery was assessed prior to coming to the cardiovascular lab and found to be of an appropriate size for a right radial artery approach. APPROACH: Right radial artery. EQUIPMENT UTILIZED: 1. Right radial artery sheath - a 6-Frisian Glidesheath. 2. Diagnostic coronary arteriography - a 5-Frisian TIG4 curve diagnostic catheter. 3. Guidewire for exchanging catheters - a [place] curved 260 cm left exchange wire. 4. Left heart catheterization catheter - a 5-Frisian PIG Performa radial. LABORATORY RESULTS BEFORE PROCEDURE: BUN and creatinine 16 and 0.9, potassium 4.5, hemoglobin and hematocrit of 14.4 and 41, platelet count of 166,000. MEDICATIONS GIVEN DURING THE PROCEDURE: Radial artery cocktail including 3000 units of heparin, 300 mcg of nitroglycerin and 3 mg of verapamil intraarterial ( the patient had already received a full dose aspirin the night before and 81 mg of aspirin prior to coming to the hoisting laborer the day of the procedure). DESCRIPTION OF PROCEDURE: The patient was brought to the cardiovascular laboratory and a formal time-out was performed. The patient was prepped and draped in a sterile fashion and the right radial artery area was anesthetized with 1% lidocaine. The right radial artery was cannulated and the introducer was placed followed by the radial artery cocktail intraarterially. Diagnostic catheterization was performed utilizing the 5-Frisian TIG catheter and left heart catheterization was performed utilizing the 5-[place]risian PIG Performa radial catheter. Following this, the catheter was removed and a Vasc Band was placed for hemostasis and the reverse Barbeau was found to be AB. The patient was stable at the time of transfer to the intensive care unit. The results were shared with Dr. Reeves, the patient's primary associate professor of history. RESULTS: HEMODYNAMIC DATA: Central aortic pressure was recorded at 116/58 with a mean of 84, left ventricular pressure 118 with left ventricular end-diastolic pressure of 11. LEFT VENTRICULOGRAPHY: Performed in the ALICEA projection revealed symmetrical contraction of the left ventricle with no focal wall motion abnormality. Overall EF was 55%. No significant mitral regurgitation was identified. CORONARY ARTERIOGRAPHY: A. Left coronary artery: 1. Left main. Widely patent. 2. Left anterior descending artery. The left anterior descending artery had an eccentric plaque just after the first septal perforated that appeared in its worse view to be approximately 65% to 70%. The first diagonal branch coming off from that side had a 75% to 80% ostial lesion. The first diagonal branch had a mid narrowing that appeared to be as much as 45% to 50%. The continuation to the LAD had 2 areas of narrowing in its mid segment, which were approximately 45% to 50%. The distal portion of the LAD had no significant disease. 3. Circumflex artery - a nondominant vessel supplying a high trifurcation marginal branch very small in caliber. The first obtuse marginal branch appeared to have a long diffusely diseased segment in its proximal portion with narrowing as much as 85% perhaps to 90% in selected views. There was VIVIANE-2 flow down this vessel that suggested this was the culprit vessel of the abnormal stress test. The continuation of the circumflex supplied a low- lying bifurcating final obtuse marginal branch to superior branch of which had an 85% to 90% stenosis in the continuation that also had a hazy 85% obstruction. B. Right coronary artery - a dominant vessel supplying the PDA and multiple posterior left ventricular branches. The proximal to mid portion appeared to have a very eccentric 60% to 65% narrowing in the UZBEK projection. The PDA itself had an ostial 90% obstruction in its worse view. The PDA did not extend fully to the apical region, but bifurcated in its mid portion. Of note, the LAD did extend to the apex and wrap around on to the distal inferior wall. OVERALL ASSESSMENT: Normal left ventricular contractility with multivessel coronary artery disease as described above with preserved left ventricular systolic dysfunction with culprit vessel appearing to be a diffusely diseased first obtuse marginal branch with VIVIANE-2 flow. In the setting of his multivessel disease, a discussion was made about pursuing the possibility of bypass surgery to address the multiple vessels involved in order to do complete revascularization. At this point in time, the discussion was held with patient's primary associate professor of history , Dr. Reeves as well as the patient and a decision was made for open heart surgery in order to correct all of the significant diffuse coronary artery disease noted. The patient understood this and was willing to proceed with this. Dr. Reeves will be arranging transfer to set up bypass surgery for the patient. [id number]/[facility] #: [id number] MTDD
[2018-03-09 13:03] VITALS: BP 150/83
--- NOTE | 2018-03-09 13:11 | DS ---
AMENDED REPORT NOW INCLUDES COSIGNER DESIGNATION - ESIGNED BEFORE ADJUSTMENTS DISCHARGE/TRANSFER SUMMARY: DATE OF ADMISSION: 03/08/18. DATE OF TRANSFER: 03/09/18. ATTENDING PHYSICIAN: Dr. Cal Sevilla * (dictated by Melissa Ennis NP). PRIMARY CARE PROVIDER: Dr. Larsen. PRIMARY DIAGNOSES: 1. Syncope. 2. Multivessel coronary artery disease. SECONDARY DIAGNOSES: 1. Pernicious anemia. 2. Hypertension. 3. Premature ventricular contractions. 4. Skin cancer. 5. Gastroesophageal reflux disease. 6. Micturition syncope. STUDIES COMPLETED WHITE IN THE HOSPITAL: He had a chest x-ray on 03/07/18, radiologist's impression: No active disease or interval changes. Electrocardiogram on 03/07/18 showed sinus bradycardia at the rate of 48. Had a nuclear stress test on 03/08/18. Radiologist's impression: Decreased activity in the lateral wall suggestive of a lateral wall infarct with suspected shannon-infarct ischemia. Assessment was intermediate risk. Had transthoracic echocardiogram on 03/08/18. Conclusion: The left ventricular chamber size is normal. Moderate concentric left ventricular hypertrophy is observed. The estimated ejection fraction is 55% to 60%. Abnormal left ventricular diastolic function is observed. The left atrium is mildly dilated. There is mild aortic regurgitation. There is trace to mild mitral regurgitation. There is mild pulmonic regurgitation. Had a cardiac catheterization on 03/09/18, which showed multivessel coronary artery disease, please refer to cath report for full details. TRANSFER MEDICATIONS: 1. Aspirin 81 mg p.o. daily. 2. Atenolol 25 mg p.o. daily. 3. Atorvastatin 20 mg p.o. daily. 4. Normal saline IV at 100 cc per hour. HISTORY OF PRESENT ILLNESS/HOSPITAL COURSE: Mr. Young is a 67-year-old male patient who carries the history of pernicious anemia, hypertension, history of PVCs, micturition syncope, history of skin cancer, and GERD. He presented to the emergency room on 03/08/18 stating he was having an episode where in the last couple of days, he was having skipped beats. He has a known history of palpitations with PVCs. He also reports having issues of reflux, gastric pressure and then he did have skipped beats and was having indigestion-type discomfort. No chest pain or shortness of breath. He reported the evening he presented to the emergency room, he had dinner, he drank a beer, he started having epigastric discomfort and pressure. He was belching. He was sitting down watching TV and the next thing he knew he woke up with his crying over him and said what happened and she said he fainted. He reports that he was unresponsive for approximately 20 seconds. He denied any chest pain prior to or after the episode. He reports his appetite has been good overall. He denies having any pain or abdominal discomfort. He said that the belching, he had been doing for the last couple of days. He reports he did not have any palpitations prior to the event this evening. Denies any recent illnesses, fever, chills, nausea or vomiting. During his hospitalization, he had routine labs work drawn. His troponins were trended and remained flat at 0.00 x3. His TSH was elevated at 7.05. His free T4 was within normal limits at 0.70, total T3 was 0.85, mildly low. Sodium was 138, potassium was 4.5, chloride was 106, carbon dioxide was 31, glucose was 122. CBC was essentially normal. He did not have a CT of the head on admission , as he refused. He did have an echocardiogram and a nuclear stress tests and as well as a cardiac catheterization completed during his hospitalization. Cardiac catheterization showed multivessel coronary artery disease in need of surgical intervention. He was seen and evaluated by Cardiology and Interventional Cardiology during this hospitalization. Please refer to their full dictated consults. At this time, Mr. Young will be transferred to [facility] for cardiac bypass surgery. His condition is guarded at this time. The patient continues to deny chest pain or shortness of breath. He denies any diaphoresis. His vital signs have remained stable throughout his hospitalization. Last blood pressure was 145/81, temperature was 97.4, heart rate is 59, respirations are 14 , O2 saturation is 96% on room air. The patient has been advised of the findings of his cardiac catheterization and the need to transfer for cardiac bypass surgery. He is in agreement to this plan. Dr. Reeves from Cardiology has spoken to Dr. Reynoso at [facility] and the patient has been accepted for transfer to [facility]. The patient will need to have follow up for his elevated TSH level in the near future. This is summarization of his hospitalization. For further details, please see the entire medical record and consultation reports. TIME SPENT: Time spent on this transfer was approximately 45 minutes, greater than half that time was spent with the patient discussing the transfer plans and instructions. CONDITION ON TRANSFER: Guarded. MELISSA ENNIS, RAMEZ [id number]/CPS #: [id number] SOURAV
[2018-03-09] MEDS ORDERED: Atorvastatin* 20 MG TAB PO SCH (17:00)
== END 2018-03-09 13:00 | disposition short-term general hospital (02) ==
LOC: ED 21:32 → MEDTELE 03-08 01:54 → ICU 03-09 10:47
PROVIDERS: ADMIT Hospitalist; ATTEND Hospitalist
DX: R55 Syncope and collapse (principal); R11.2 Nausea with vomiting, unspecified; I25.10 Atherosclerotic heart disease of native coronary artery without angina pectoris; D64.9 Anemia, unspecified; I10 Essential (primary) hypertension; I49.3 Ventricular premature depolarization; C44.90 Unspecified malignant neoplasm of skin, unspecified; K21.9 Gastro-esophageal reflux disease without esophagitis; Z79.82 Long term (current) use of aspirin
CPT/HCPCS: 36415; 71045; 78452; 80048; 80053; 80061; 83036; 83605; 83735; 84439; 84443; 84479; 84484; 85025; 85379; 85610; 85730; 93005; 93017; 93306; 93458; 96374; 99284; A9270-GY; A9502; G0378; J0583; J1644; J2250; J3010

== ENCOUNTER 2018-03-20 13:31 | Observation (INO) | payer MEDICARE ==
[2018-03-20 14:44] LABS: ABS Basophils 0.1 10^3/ul (0-0.2); ABS Eosinophils 0.1 10^3/ul (0-0.6); ABS Monocytes 0.9 10^3/ul (0-0.8); ABS Neutrophils 6.2 10^3/ul (1.5-7.7); ABS Nucleated RBC 0 10^3/ul; Eosinophil % 1.2 % (0-6); Hematocrit 35 % (42-52); Hemoglobin 11.4 g/dl (14.0-18.0); Lymphocyte % 12.3 % (25-47); Mean Corpuscular HGB Conc 33 g/dl (31-36); Mean Corpuscular Hemoglobin 27 pg (27-31); Mean Corpuscular Volume 81 fL (80-94); Mean Platelet Volume 7.3 um3 (7.4-10.4); Nucleated Red Blood Cells % 0.1; Platelet Count 391 10^3/ul (150-450); Red Blood Count 4.31 10^6/ul (4.0-5.4); Red Cell Distribution Width 14 % (10.5-15); White Blood Count 8.3 10^3/ul (3.5-10.8)
--- NOTE | 2018-03-20 14:44 | RAD ---
HISTORY: Syncope COMPARISONS: March 07, 2018 VIEWS: 1: frontal portable view of the chest at 2:25 PM FINDINGS: LINES AND TUBES: None. CARDIOMEDIASTINAL SILHOUETTE: The cardiomediastinal silhouette is normal for portable technique. PLEURA: There is a moderate left pleural effusion. LUNG PARENCHYMA: There is confluent alveolar opacification of the left lower lung. ABDOMEN: The upper abdomen is clear. There is no subphrenic gas. BONES AND SOFT TISSUES: The patient is status post median sternotomy. IMPRESSION: LEFT LOWER LUNG ATELECTASIS VERSUS CONSOLIDATION WITH MODERATE LEFT PLEURAL EFFUSION.
[2018-03-20 15:00] LABS: EGFR Non-African American 73.3 (>60)
[2018-03-20 16:18] LABS: INR 1.44 (0.77-1.02)
[2018-03-20] MEDS ORDERED: NS 0.9% 500 ML* 500 ML IV ONE (16:32)
[2018-03-20] MEDS ORDERED: Warfarin TAB(*) 2 MG PO SCH (17:00)
--- NOTE | 2018-03-20 17:32 | ED ---
Pati Barrera Elizabeth, scribed for Ortiz Ellsworth MD on 03/20/18 at 1428 . Syncope/Near Syncope - HPI Summary HPI Summary: This patient is a 67 year old M presenting to [facility] upon referral from Dr. Reynoso following a syncopal episode at 05:30 this morning. The patient reports he was leaning over the side of the bed coughing when the episode occurred. The episode was witnessed and noted to last 3-5 seconds. The patient notes he felt a bit weaker than usual this morning, Symptoms aggravated by coughing. Patient reports cough, and laceration above his left eyebrow. Patient denies shortness of breath, weight gain, edema, headache, and melena. The patient had a cardiac bypass done on 03/11/2018 at [facility] and was discharged home on 03/15/2018. The patient notes that he had A-fib and PVCs at separate occasions during his previous hospitalization. The patient is taking Metoprolol, warfarin 4mg, amiodarone, Lasix, and Coumadin. - History Of Current Complaint Chief Complaint: EDSyncope Time Seen by Provider: 03/20/18 13:42 Hx Obtained From: Patient Onset/Duration: Sudden Onset, Resolved Timing: Seconds Context: Witnessed, Loss Of Consciousness - 3-5 seconds Activity At Onset: Other - coughing Aggravating Factor(s): Other - coughing Associated Signs And Symptoms: Pain - above left eyebrow, Weakness, Other - cough - Allergies/Home Medications Allergies/Adverse Reactions: Allergies Allergy/AdvReac Type Severity Reaction Status Date / Time Sulfa (Sulfonamide Allergy Swelling Verified 03/20/18 13:38 Antibiotics) Home Medications: Home Medications Amiodarone TAB* [Cordarone TAB*] 200 mg PO BID 03/20/18 [History Confirmed 03/20] Atorvastatin* [Lipitor*] 40 mg PO DAILY 03/20/18 [History Confirmed 03/20/18] Furosemide TAB* [Lasix TAB*] 40 mg PO DAILY 03/20/18 [History Confirmed 03/20/18 ] Metoprolol Tartrate TAB* [Lopressor TAB*] 50 mg PO BID 03/20/18 [History Confirmed 03/20/18] Potassium Chlor TAB* [Klor Con ER TAB*] 20 meq PO DAILY 03/20/18 [History Confirmed 03/20/18] Warfarin TAB(*) [Coumadin TAB(*)] 2 mg PO EVERY OTHER DAY 03/20/18 [History Confirmed 03/20/18] Warfarin TAB(*) [Coumadin TAB(*)] 4 mg PO EVERY OTHER DAY 03/20/18 [History Confirmed 03/20/18] PMH/Surg Hx/FS Hx/Imm Hx Endocrine/Hematology History: Denies: Hx Anticoagulant Therapy, Hx Diabetes Cardiovascular History: Reports: Hx Hypercholesterolemia, Hx Hypertension, Other Cardiovascular Problems/Disorders - PT.STATES ? AFIB Denies: Hx Angina, Hx Congestive Heart Failure, Hx Coronary Artery Disease, Hx Myocardial Infarction, Hx Valvular Heart Disease Respiratory History: Denies: Hx Asthma, Hx Chronic Obstructive Pulmonary Disease (COPD) Sensory History: Reports: Hx Contacts or Glasses Denies: Hx Hearing Aid Opthamlomology History: Reports: Hx Contacts or Glasses - Surgical History Surgery Procedure, Year, and Place: appy, tonsillectomy, cardiac bypass 03/11/18 Infectious Disease History: No Infectious Disease History: Denies: Hx Hepatitis, Hx Human Immunodeficiency Virus (HIV), Hx of Known/ Suspected MRSA, Hx Shingles, Hx Tuberculosis, Traveled Outside the [place] in Last 30 Days - Family History Known Family History: Positive: Other - A Fib - Social History Alcohol Use: Rare Substance Use Type: Reports: None Hx Tobacco Use: No Smoking Status (MU): Never Smoked Tobacco Review of Systems Negative: Fever, Chills Negative: Erythema Negative: Sore Throat Negative: Chest Pain Positive: Cough. Negative: Shortness Of Breath Negative: Abdominal Pain, Vomiting, Nausea Genitourinary: Other - NEGATIVE MELENA Negative: dysuria, hematuria Negative: Myalgia, Edema Positive: Other - laceration above left eyebrow. Negative: Rash Neurological: Other - NEGATIVE DIZZINESS Positive: Syncope. Negative: Headache All Other Systems Reviewed And Are Negative: Yes Physical Exam - Summary Physical Exam Summary: Constitutional: Well-developed, Well-nourished, Alert. (-) Distressed Skin: Warm, Dry HENT: Normocephalic; 1 cm laceration above left eyebrow Eyes: Conjunctiva normal Neck: Musculoskeletal ROM normal neck. (-) JVD, (-) Stridor, (-) Tracheal deviation Cardio: Rhythm regular, rate normal, Heart sounds normal; Intact distal pulses; The pedal pulses are 2+ and symmetric. Radial pulses are 2+ and symmetric. (-) Murmur Pulmonary/Chest wall: Effort normal. (-) Respiratory distress, (-) Wheezes, (-) Rales Abd: Soft, (-) Tenderness, (-) Distension, (-) Guarding, (-) Rebound Musculoskeletal: (-) Edema Lymph: (-) Cervical adenopathy Neuro: Alert, Oriented x3 Psych: Mood and affect Normal Triage Information Reviewed: Yes Vital Signs On Initial Exam: Initial Vitals Temp Pulse Resp BP Pulse Ox 97.7 F 80 18 155/86 97 03/20/18 13:34 03/20/18 13:34 03/20/18 13:34 03/20/18 13:34 03/20/18 13:34 Vital Signs Reviewed: Yes Procedures - Laceration/Wound Repair #1 Location: head - above left eyebrow Length, Depth and Shape: 1 cm long Laceration/Wound Explored: clean, no foreign body removed Closure: Skin Adhesive Diagnostics - Vital Signs Vital Signs Temp Pulse Resp BP Pulse Ox 03/20/18 14:00 77 21 95 03/20/18 13:48 85 20 131/81 97 03/20/18 13:34 97.7 F 80 18 155/86 97 - Laboratory Result Diagrams: 03/20/18 14:36 03/20/18 14:36 Lab Statement: Any lab studies that have been ordered have been reviewed, and results considered in the medical decision making process. - EKG 14:30 Cardiac Rate: NL - at 74 BPM EKG Rhythm: Sinus Rhythm - Additional Comments Diagnostic Additional Comments: Emergency bedside US Interpreted by Dr. Ellsworth Impression: no pericardial effusion Re-Evaluation - Re-Evaluation 1st re-eval Re-Evaluation Time: 14:15 Change: Unchanged Comment: lac repair performed. 2nd re-eval Re-Evaluation Time: 14:47 Change: Unchanged Comment: Discussed course of treatment with patient. Patient refused Brain CT AMA. Attempted to convince him to agree to it, but he still refused. 3rd re-eval Re-Evaluation Time: 15:27 Change: Unchanged Comment: Informed patient that Dr. Reynoso had been consulted and that his labs appeared normal. Asked him to reconsider the brain CT, he refused. 4th re-eval Re-Evaluation Time: 16:01 Change: Unchanged Comment: Discussed plan to admit the patient for observation. Course/Dx Course Of Treatment: An emergency bedside US was performed which revealed no pericardial effusion. An EKG reveals sinus rhythm at 74 BPM. Test results with no significant abnormalities. Patient refused brain CT AMA and was encouraged to reconsider multiple times to no avail. We discussed patient care with Dr. Agusto Reynoso, sewing machine attachment tester, and he recommended the local cardiology group be contacted. We discussed patient care with Dr. Haney, hospitalist, who recommended that the patient be admitted for observation. Patient will be admitted to [facility] for observation. The patient is agreeable with this plan. - Diagnoses Provider Diagnoses: Syncope - Physician Notifications Discussed Care of Patient With: Agusto Reynoso MD Time Discussed With Above Provider: 15:30 Instructed by Provider To: Other - At 15:30 discussed care of [address]. Dr. Reynoso, sewing machine attachment tester, recommended that the local cardiology group be contacted. At 15:50 discussed care of patient with, Dr. Haney, who recommended admitting the patient for observation Discharge - Sign-Out/Discharge Documenting (check all that apply): Discharge/Admit/Transfer - Discharge Plan Condition: Stable Disposition: ADMITTED TO [facility] Referrals: Devin Larsen MD [Primary Care Provider] - The documentation as recorded by the Pati casas Elizabeth accurately reflects the service I personally performed and the decisions made by , Ortiz Ellsworth MD.
[2018-03-20] MEDS ORDERED: Atorvastatin* 40 MG TAB PO SCH (18:00)
--- NOTE | 2018-03-20 18:00 | CONSULT ---
Subjective Date of Service: 03/20/18 Interval History: Date of admission and consult 03/20/2018 Service: Hospitalist Medical Office Supervisor: Dr. Nunez PMD; Dr. 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 He had post-op Afib and was placed on warfarin and amiodarone. He has been recovering relatively well. His last dose of lasix was this AM. He woke up and had to go to the bathroom first thing this AM. He was at side of bed coughing and caused incisional pain and had LOC without prodrome injuring above eye. He has had micturition syncope in the past when ill several times and one episode of syncope recently that prompted evaluation revealing multivessel CAD. He has been walking every day and denies any angina, dyspnea, edema, fever, chills or wound drainage.. He had some intermittent palpitations this weekend that were recognized as prior PVC's. He felt Afib at [facility] when he went into it distinctly and has not had symptoms similar to that. Allergies: Sulfa Antibiotics 07/11/16 Cipro 07/11/16 allergy list reviewed on 07/13/2017 PMH: Symptomatic PVC's Hyperlipidemia Syncope CAD squamous cell cancer neuropathy PAST SURGICAL HISTORY: 1. Status post 6-vessel CABG on 03/11/18. 2. 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 3. Status post tonsillectomy. 4. Status post appendectomy. FH: Father: Atrial Fibrillation, Melanoma. due to Melanoma - age 84. . Mother: Hypertension - (07/11/2016) (age 91 Years) alive as of Hypercholesterolemia. Siblings:1 - 1 sister - suicide 19yrs ago. SH: Marital: .Lives With: .Occupation: retired etired [employer]et.2 adult children. 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 lived in [place] for 15 years. Personal Habits: Smoking: Patient has never smoked.Cigarette Use: Never Smoked Cigarettes.Alcohol: Rarely consumes alcohol.Drug Use: Denies Drug Use Medications Active Medications: Amiodarone HCl (Cordarone Tab*) 200 mg PO BID JAM Aspirin (Aspirin Ec Tab*) 81 mg PO DAILY JAM Atorvastatin Calcium (Lipitor*) 40 mg PO 1800 JAM Metoprolol Tartrate (Lopressor Tab*) 50 mg PO BID [facility] Warfarin Sodium (Coumadin Tab(*)) 2 mg PO EVERY OTHER DAY JAM PRN Reason: Protocol Warfarin Sodium (Coumadin Tab(*)) 4 mg PO EVERY OTHER DAY JAM PRN Reason: Protocol Home Medications: Amiodarone TAB* [Cordarone TAB*] 200 mg PO BID 03/20/18 [History Confirmed 03/20] Aspirin EC TAB* [Ecotrin EC Low Dose 81 MG*] 81 mg PO DAILY 03/20/18 [History Confirmed 03/20/18]. jordan not been taking Atorvastatin* [Lipitor*] 40 mg PO DAILY 03/20/18 [History Confirmed 03/20/18] Cyanocobalamin INJ * [Vitamin B12 INJ *] 1,000 mcg IM MONTHLY 03/20/18 [History Confirmed 03/20/18] Furosemide TAB* [Lasix TAB*] 40 mg PO DAILY 03/20/18 [History Confirmed 03/20/18 ] Metoprolol Tartrate TAB* [Lopressor TAB*] 50 mg PO BID 03/20/18 [History Confirmed 03/20/18] Potassium Chlor TAB* [Klor Con ER TAB*] 20 meq PO DAILY 03/20/18 [History Confirmed 03/20/18] Warfarin TAB(*) [Coumadin TAB(*)] 2 mg PO EVERY OTHER DAY 03/20/18 [History Confirmed 03/20/18] Warfarin TAB(*) [Coumadin TAB(*)] 4 mg PO EVERY OTHER DAY 03/20/18 [History Confirmed 03/20/18] Review of Systems - Measurements Intake and Output: Intake and Output Last 24 Hours 03/18/18 03/19/18 03/20/18 03/21/18 06:59 06:59 06:59 06:59 Weight 238 lb - Review of Systems Constitutional Symptoms: Negative: Weight Gain, Weight Loss, Weakness, Fatigue, Fever, Night Sweats Dermatology: Negative: Rash, Skin Lesions, Skin Lumps HEENT: Negative: Change in Hearing, Vertigo Eyes: Negative: Change in Vision, Double Vision Thyroid: Positive: Palpitations Negative: Thyroid Nodule, Cold Intolerance, Heat Intolerance, Sweatiness, Tremor, Frequent Defecation, Constipation, Weight Loss, Weight Gain Pulmonary: Positive: Cough Negative: Sputum, Hemoptysis, Wheezing, Respiratory Distress, Shortness of Breath, COPD, Asthma, Exercise Intolerance, Home Oxygen Cardiology: Positive: Palpitations, Syncope Negative: Shortness of Breath, Swelling of Ankles, Peripheral Vascular Dis, Edema, Faintness, Claudication, Paroxysmal Nocturnal Dyspnea, Orthopnea Gastroenterology: Negative: Abdominal Pain, Nausea, Vomiting, Anorexia, Indigestion, Difficulty Swallowing, Heartburn, Constipation, Diarrhea, Blood in Stools, Change in Bowel Habits, Haematemesis, Melena Genital - Urinary: Negative: Dysuria, Hematuria, Polyuria Musculoskeletal: Negative: Joint Pain, Joint Stiffness, Arthritis Endocrinology: Positive: Obesity Negative: Diabetes, Hyperglycemia, Hypoglycemia, Calluses Hematologic/Lymphatic: Positive: Use of Anticoagulant, Use of Antiplatelet Drugs Neurology: Positive: Other Negative: Headaches, Migraines, Change in Vision, Diplopia, Dizziness, Change in Balancing, Change in Coordination, Change in Memory, Numbness\ Paresthesiae, Unexplained Weakness, Hx of Stroke\TIA, Hx Seizures Psychiatry: Negative: Unusual Anxiety, Suicidal Ideation Allergic/Immunologic: Negative: Hx HIV, Immunocompromise Review of Systems Statement: All other review of systems negative, unless stated above. Objective Vital Signs: Temp Pulse Resp BP Pulse Ox 97.7 F 72 18 127/64 95 03/20/18 13:34 03/20/18 17:00 03/20/18 17:00 03/20/18 16:48 03/20/18 17:00 Appearance: nad, pleasant Ears/Nose/Mouth/Throat: Clear Oropharnyx, Mucous Membranes Moist, - - laceration above eye Neck: NL Appearance and Movements; NL JVP Respiratory: Symmetrical Chest Expansion and Respiratory Effort, - - decreased breath sounds left base Cardiovascular: RRR, No Edema, - - no murmur or rub, sternotomy site healing well no drainage or erythema Abdominal: NL Sounds; No Tenderness; No Distention Extremities: No Edema, No Clubbing, Cyanosis, - - graft harvest sites no signs of infection Skin: No Rash or Ulcers Neurological: Alert and Oriented x 3 Laboratory Results: 03/20/18 14:36 03/20/18 14:36 INR (Anticoag Therapy) 1.44 (0.77-1.02) H 03/20/18 16:05 Total Bilirubin 0.60 mg/dL (0.2-1.0) 03/20/18 14:36 AST 25 U/L (13-39) 03/20/18 14:36 ALT 42 U/L (7-52) 03/20/18 14:36 Alkaline Phosphatase 95 U/L (34-104) 03/20/18 14:36 Total Protein 6.4 g/dL (6.4-8.9) 03/20/18 14:36 Albumin 3.1 g/dL (3.2-5.2) L 03/20/18 14:36 Globulin 3.3 g/dL (2-4) 03/20/18 14:36 Albumin/Globulin Ratio 0.9 (1-3) L 03/20/18 14:36 03/20/18 14:36 Troponin I 0.01 Diagnostic Imaging: Chest x-ray admission. Radiologist's impression: Left lower lung atelectasis versus consolidation with moderate left pleural effusion. echo 03/08/18: moderate lvh, lvef 55-60%, la mildly dilated, no significant valvular abnormalities nuc 03/08/2018: 7 minutes, no angina, late st depression. interpretation was lateral wall infarct with suspected shannon-infarct ischemia cath 03/08/18: Multivessel CAD, right radial Dr. Hardy, normal Lvef EKG Data: ekg admission: nsr, low voltage, non-specific precordial st/t changes these changes new since pre-op ekg 03/07/2018 Assessment/Plan 67 year old man with recent cabg presents with syncope in setting of lasix use, just sitting up in morning and coughing with pain. - Likely multifactorial syncope, unlikely tachyarrhythmia related, could have cardioinhibitory response to vagal episode component given prior history - Telemetry overnight - Check echo - Check orthostatics - I advised patient to start aspirin he was prescribed, has not been taking - d/c lasix and potassium (last day was today) - If above unremarkable can be discharged tomorrow - CXR noted, needs continued ambulation, we discussed cardiac rehab once sternum better healed, would add incentive spirometry, has CV surgery f/u planned. Thank you for allowing me to participate in the cardiovascular care of this patient please do not hesitate to contact me with questions or concerns.
[2018-03-20] MEDS: Metoprolol Tartrate TAB* 50 mg PO SCH (20:45)
[2018-03-20] MEDS: Aspirin EC TAB* 81 MG TAB.EC PO SCH (20:45)
[2018-03-20] MEDS: Amiodarone TAB* 200 MG PO SCH (20:45)
--- NOTE | 2018-03-20 21:28 | HP ---
CC: Devin Larsen MD * HISTORY AND PHYSICAL: DATE OF ADMISSION: 03/20/18 PRIMARY CARE PROVIDER: Devin Larsen MD ATTENDING PHYSICIAN: Lida Brown MD * (dictated by Leanna Haywood NP). CHIEF COMPLAINT: Syncopal episode. HISTORY OF PRESENT ILLNESS: Mr. Young is a 67-year-old male with past medical history significant for hypertension, PVCs, squamous cell carcinoma, syncope, atrial fibrillation, who recently underwent a coronary artery bypass graft in [place] on 03/11/18. The patient initially presented to [facility] on 03/08/18 after a syncopal episode, it was felt that this was multifactorial. He underwent a stress test showing areas of ischemia. He then underwent a cardiac catheterization showing multivessel disease. A decision was made to transfer the patient to [place] to undergo coronary artery bypass grafts. The patient had a 6-vessel coronary artery bypass graft on 03/11/18. The patient states he has been doing well since this procedure. He denies any fevers, chills, chest pain, shortness of breath, nausea, vomiting, diarrhea, abdominal pain. He denies any lightheadedness. The patient states that every day when he goes to get up, he has a lot of phlegm from lying on his back, so he sits on the side of his bed leaning forward and coughing to clear the phlegm. He states that this morning when he got up at 5:30 to urinate, he made it as far as sitting up on the side of the bed and coughing when he had a syncopal episode. He reports being unconscious for a few seconds. It is to note, that he has not been taking his aspirin as he didn't understand why he was on both Warfarin and aspirin. Due to his syncopal episode, he came to the emergency room for further evaluation. While in the emergency room, the patient had an EKG without significant findings. A chest x-ray showing left lung atelectasis versus consolidation and moderate left pleural effusion. He had a troponin of 0.01. He was found to be orthostatic and received 500 mL fluid bolus. His other labs were unremarkable. Due to the patient's syncopal episode, the hospitalists were asked to evaluate him for admission. PAST MEDICAL HISTORY: 1. Hypertension. 2. PVCs. 3. Squamous cell carcinoma. 4. Micturition syncope. 5. Atrial fibrillation. 6. Neuropathy in bilateral lower extremities. PAST SURGICAL HISTORY: 1. Status post 6-vessel CABG on 03/11/18. 2. 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 3. Status post tonsillectomy. 4. Status post appendectomy. MEDICATIONS: Include: 1. Potassium 20 mEq oral daily, last day for this was today. 2. Lopressor 50 mg oral twice daily. 3. Furosemide 40 mg oral daily, last day was today. 4. Lipitor 40 mg oral every evening. 5. Amiodarone 200 mg oral twice daily. 6. Warfarin alternating 4 mg and 2 mg every other day. 7. Vitamin B12 injection 1000 mcg intramuscularly monthly, the patient prescribes and self administers this to himself. 8. Aspirin 81 mg oral daily, the patient states he has not been taking this. ALLERGIES: CIPRO and SULFA. FAMILY HISTORY: The patient's mother is alive at 93. His father had a history of atrial fibrillation and melanoma. His paternal grandmother and maternal grandfather with a history of diabetes. SOCIAL HISTORY: The patient denies tobacco or recreational drug use. He occasionally drinks alcohol. His , Cristal Young, will be his surrogate decision maker in the event he is unable to make decisions for himself. REVIEW OF SYSTEMS: I performed an 11-point review of systems. All the pertinent positives and negatives are mentioned in the history of present illness. Remaining of the review systems are negative. PHYSICAL EXAMINATION GENERAL APPEARANCE: The patient is alert, pleasant, and appears to be in no acute distress. VITAL SIGNS: Temperature 97.7, heart rate 90, respiratory rate 21, O2 sat 96% on room air, blood pressure 121/77. HEENT: Normocephalic and atraumatic. Pupils are equal and reactive to light. Extraocular movements are intact. RESPIRATORY: There is no accessory muscle use. The lungs are clear to auscultation bilaterally. CARDIOVASCULAR: Regular rate and rhythm. S1, and S2 present. There are no murmurs, rubs, or gallops heard. ABDOMEN: Soft, nontender, and nondistended. There are bowel sounds present x4. EXTREMITIES: There is no lower extremity edema. DP and PT pulses are 2+ and symmetric. MUSCULOSKELETAL: There is no clubbing or cyanosis noted. The patient exhibits good strength in all extremities. NEUROLOGICAL: The patient is alert and oriented x4. Cranial nerves II through XII are grossly intact. PSYCHOLOGICAL: The patient is calm and cooperative. SKIN: There are no rashes or abnormalities seen. The patient has a healing sternal incision. Additionally, he has a laceration above his left eye that has been repaired in the emergency room. DIAGNOSTIC STUDIES/LABORATORY DATA: Sodium 137, potassium 3.9, chloride 100, CO2 of 30, BUN 16, creatinine 1.02, glucose 101. White blood cell count 8.3, hemoglobin 11.4, hematocrit 35, platelet count 391,000. Troponin 0.01. EKG shows a sinus rhythm, a rate of 74. There are no acute signs of ischemia. This EKG is similar to previous from 03/07/18. Chest x-ray from today. Radiologist's impression: Left lower lung atelectasis versus consolidation with moderate left pleural effusion. IMPRESSION: Mr. Young is a 67-year-old male with past medical history significant for hypertension, premature ventricular contractions, squamous cell skin cancer, syncope, atrial fibrillation, who is approximately 9 days status post 6-vessel coronary artery bypass grafting, who presented to the emergency room after a syncopal episode. He will be admitted as an observation for syncope. ASSESSMENT/PLAN: 1. Syncope. I suspect this is secondary to orthostasis. The patient is going to receive a 500 mL of saline in the emergency room. We will recheck orthostatic vitals in the morning, trend his troponins, check echocardiogram. Cardiology will consult on the patient due to his being so close to having a coronary artery bypass graft. The patient has declined a brain CT in the emergency room. 2. Atelectasis. The patient will be encouraged to cough and deep breathe and use an incentive spirometer. 3. Coronary artery disease. The patient will be continued on his home Lopressor, atorvastatin, and started on aspirin. 4. Neuropathy. The patient will be continued on his monthly vitamin B12. 5. Hypertension. The patient has been normotensive in the emergency room. He will be continued on his home Lopressor. 6. Paroxysmal atrial fibrillation. Per the patient, he had atrial fibrillation postoperatively. He will be continued on warfarin, amiodarone, and Lopressor. 7. Fluids, electrolytes, and nutrition. He will be on a heart-healthy diet. 8. Code status. Full code. 9. DVT prophylaxis. His INR is currently subtherapeutic. He will be continued on his warfarin. 10. Disposition. Observation. TIME SPENT: Time for this admission was approximately 60 minutes, greater than half of that was spent [id number] with the patient discussing medications, past medical history, the events leading up to his arrival today, performing a physical examination. The case has been reviewed with the attending, Dr. Brown, who agrees with the plan of care. Reviewed by ARIANA WILKS 03/21/18 [id number]/[facility] #: [id number] SOURAV
[2018-03-21 05:58] LABS: INR 1.57 (0.77-1.02)
[2018-03-21] MEDS ORDERED: Furosemide TAB* 40 MG PO SCH (09:00)
[2018-03-21] MEDS ORDERED: Potassium Chlor TAB* 20 MEQ TAB.ER PO SCH (09:00)
[2018-03-21] MEDS ORDERED: Atorvastatin* 40 MG TAB PO SCH (09:00)
[2018-03-21] MEDS: Aspirin EC TAB* 81 MG TAB.EC PO SCH (09:18)
[2018-03-21] MEDS: Amiodarone TAB* 200 MG PO SCH (09:28)
--- NOTE | 2018-03-21 10:44 | ECHO ---
Patient: SATISH CHIN [facility] Rec#: [id number] : 1950 Date: 03/21/2018 Age: 67y Height: 185.42 cm / 73.0 in Weight: 107.95 kg / 237.9 lbs Sex: M BSA: 2.32 Room#: 433 Admit Date#: 03/20/2018 Type: Inpatient Referring: Aleida Haywood NP, Leanna Reading: Shant Hardy MD Box Gluer: Cuca Castillo,ZAYCS,RDMS CC: Leoncio Nunez MD Transthoracic Echocardiogram Indication: Syncope BP: 112/56 HR: 67 Rhythm: NSR Findings History: S/P 6 vessel CABG, HTN, HLD, AFIB, premature beats Technical Comments: The study quality is good. Left Ventricle: The left ventricular chamber size is normal. Moderate concentric left ventricular hypertrophy is observed. Global left ventricular wall motion and contractility are within normal limits. The estimated ejection fraction is 55-60%. There is no consistent Doppler evidence of clinically significant diastolic dysfunction. Left Atrium: The left atrium is mildly dilated. Right Ventricle: The right ventricular chamber size and systolic function are within normal limits. Right Atrium: The right atrium is mildly dilated. Aortic Valve: The aortic valve is trileaflet. Systolic excursion of the aortic valve is normal. There is trace to mild aortic regurgitation. There is no evidence of aortic stenosis. Mitral Valve: The mitral valve leaflets are mildly thickened. There is no evidence of mitral regurgitation. There is no evidence of mitral stenosis. Tricuspid Valve: The tricuspid valve leaflets are normal. There is trace tricuspid regurgitation. Unable to estimate the right ventricular systolic pressure. Pulmonic Valve: The pulmonic valve appears normal. There is a trace pulmonic regurgitation. Pericardium: There is no significant pericardial effusion. A pericardial fat pad is visualized. A left pleural effusion is present. Aorta: There is no dilatation of the ascending aorta. There is mild dilatation of the aortic arch. There is mild dilatation of the aortic root. Pulmonary Artery: The main pulmonary artery appears normal. Venous: The inferior vena cava appears normal in size. Conclusions Moderate concentric left ventricular hypertrophy is observed. Global left ventricular wall motion and contractility are within normal limits. The estimated ejection fraction is 55-60%. The left atrium is mildly dilated. There is trace to mild aortic regurgitation. There is trace tricuspid regurgitation. There is a trace pulmonic regurgitation. A left pleural effusion is present. There is mild dilatation of the aortic arch. There is mild dilatation of the aortic root. Compared to report of study from 03/08/2018 the right ventricle and atrium do not appear enlarged in most views, a left pleural effusion is seen. Measurements Name Value Normal Range RVIDd (AP) 2D 3.1 cm (0.9 - 2.6) RVDdMajor (2D) 3.4 cm (2.2 - 4.4) RAd ISD 4CH 6.4 cm (3.4 - 4.9) RA (A4C)W 4.4 cm (2.9 - 4.6) IVSd (2D) 1.5 cm (0.6 - 1) LVPWd (2D) 1.5 cm (0.6 - 1) LVIDd (2D) 4.6 cm (3.6 - 5.4) LVIDs (2D) 2.8 cm - LV FS (2D) 38 % (25 - 45) Aortic Annulus 2.3 cm (1.4 - 2.6) Ao root diameter (2D) 3.7 cm (2.1 - 3.5) Ascending Ao 3.4 cm (2.1 - 3.4) Aortic arch 4.1 cm (1.8 - 3.4) LA dimension (AP) 2D 4.3 cm (2.3 - 3.8) LAd ISD 4CH 7.8 cm (2.9 - 5.3) LA ISD 4CH W 4.6 cm (2.5 - 4.5) Name Value Normal Range LA ESV SP 4CH (A/L) 89.86 ml - LA ESV SP 2CH (A/L) 41.51 ml - LA ESV BP (A/L) 71.74 ml - LA ESV BP (A/L) index 31 ml/m2 - LA ESV SP 4CH (MOD) 78.37 ml - LA ESV SP 2CH (MOD) 39.88 ml - Name Value Normal Range MV E-wave Vmax 0.7 m/sec - MV deceleration time 178 msec - MV A-wave Vmax 0.6 m/sec - MV E:A ratio 1.2 ratio - P. vein S-wave Vmax 0.4 m/sec - P. vein D-wave Vmax 0.5 m/sec - P. vein S:D Vmax ratio 0.7 ratio - P. vein A-wave duration 111 msec - LV septal e' Vmax 0.06 m/sec - LV lateral e' Vmax 0.05 m/sec - LV E:e' septal ratio 12 ratio - LV E:e' lateral ratio 14 ratio - Name Value Normal Range AV Vmax 1.4 m/sec - AV VTI 27.4 cm - AV peak gradient 8 mmHg - AV mean gradient 4.5 mmHg - LVOT Vmax 1.2 m/sec - LVOT VTI 26 cm - LVOT peak gradient 6 mmHg - LVOT mean gradient 3.8 mmHg - EDUAR Vmax 0.6 m/sec - Name Value Normal Range RAP 8 mmHg - IVC diameter 1.2 cm - Name Value Normal Range PV Vmax 0.8 m/sec - PV peak gradient 2.6 mmHg -
[2018-03-21 11:45] VITALS: BP 136/61
[2018-03-21] MEDS: Metoprolol Tartrate TAB* 50 mg PO SCH (12:58)
[2018-03-21] MEDS ORDERED: Warfarin TAB(*) 4 MG PO SCH (17:00)
--- NOTE | 2018-03-22 11:54 | DS ---
AMENDED REPORT NOW INCLUDES COSIGNER DESIGNATION - ESIGNED BEFORE ADJUSTMENTS DISCHARGE SUMMARY: DATE OF ADMISSION: 03/20/18. DATE OF DISCHARGE: 03/21/18. PATIENT OF: Lida Brown MD. ATTENDING HOSPITALIST: Dr. Lenard Presley.* (DICTATED BY ASIA GRACE) PRIMARY CARE PHYSICIAN: Dr. Devin Larsen. PRIMARY INFANT LEAD TEACHER: Dr. Leoncio Nunez. ADMISSION DIAGNOSES: 1. Syncopal episode. 2. Hypotension. 3. History of hypertension. 4. Premature ventricular contractions. 5. Squamous cell carcinoma. 6. Coronary artery disease. 7. Atrial fibrillation. DISCHARGE DIAGNOSES: 1. Syncopal episodes. 2. Hypotension. 3. History of hypertension. 4. Premature ventricular contractions. 5. Squamous cell carcinoma. 6. Coronary artery disease. 7. Atrial fibrillation. CHIEF COMPLAINT: Syncopal episode. HISTORY OF PRESENT ILLNESS: Mr. Young is a pleasant 67-year-old gentleman with past medical history significant for hypertension, PVCs, and coronary artery disease. He recently underwent coronary artery bypass graft in [place] on 03/11/18. He reports that he has been doing well since discharge form the hospital and has been taking Lasix for the past 5 days that will end today. He took his last dose of Lasix and shortly after that he noticed a syncopal episode at home. He reports that he did not have any headache or dizziness prior to his episode. He was basically having multiple episodes of cough and after which he felt dizzy and he passed out with his witnessing the event and said that he lost consciousness for about 2 seconds. He was able to regain consciousness, noticed a little area of ecchymosis on his left forehead, but was able to get up and denied any chest pain or any other associated symptoms. He presented to the emergency room and had an EKG done that showed no significant findings. His chest x-ray show evidence of atelectasis and moderate pleural effusion likely secondary to his recent surgery. His troponins were flat with 0.01 level. He was found to have an orthostatic hypotension and received an IV fluid bolus. His other labs were essentially unremarkable. He had laboratory workup that revealed a normal electrolytes and normal hemoglobin and hematocrit. Given his recent coronary artery bypass graft and his syncopal episode it was felt necessary to keep him overnight for observation. The patient was kept in the telemetry unit for observation. His vitals were monitored closely and he showed no evidence of bradycardia and continued to have no chest pain or any associated symptoms. His orthostatic blood pressure was obtained after he received IV fluid bolus and was noted to be within normal limits. We had a consultation with Dr. Martin Haney given again his recent bypass graft. He had an echocardiogram done that revealed good ejection fraction of 55% to 60% with no evidence of any valvular abnormality for a pericardial effusion. It was felt that the patient had his syncopal episodes due to either vasovagal response or orthostatic hypotension due to his recent use of Lasix and dehydration. This morning on exam, the patient is comfortable and would like to go home. His vitals were noted to be stable. His heart was regular rate and rhythm with no rubs, murmurs, or gallops. His lungs was clear to auscultation bilaterally. I discussed the case with Dr. Reeves prior to discharge, who evaluated the echocardiogram done yesterday and cleared the patient for discharge. We will cut his metoprolol dose in half to resume 25 mg twice daily and will resume his warfarin and other medications as usual. He is no longer on Lasix or potassium supplements at that point. DISCHARGE MEDICATIONS: Include: 1. Amiodarone 200 mg p.o. b.i.d. 2. Aspirin 81 mg p.o. q. daily. 3. Lipitor 40 mg p.o. q. daily. 4. Vitamin B12, 1000 mcg injection q. month. 5. Lopressor 25 mg p.o. b.i.d. 6. Coumadin 2 mg p.o. every other day alternating with warfarin 4 mg p.o. alternating with opposite days. PROBLEM LISTS: 1. Coronary artery disease. The patient is status post coronary artery bypass graft on 03/11/18 in [place]. Echo done yesterday revealed intact graft and no evidence of any cardiac event. 2. Syncope and fall. Likely orthostatic in nature due to dehydration secondary to use of Lasix for the past 5 days. I encourage p.o. oral intake and we will continue to keep him on metoprolol with half dose done at 25 mg p.o. b.i.d. until he sees Dr. Nunez in a couple of weeks. All his questions answered. The patient was stable for discharge to home today. ASIA GRACE [id number]/[facility] #: [id number] SOURAV
== END 2018-03-21 14:00 | disposition home or self-care (01) ==
LOC: ED 13:31 → MEDTELE 16:19
PROVIDERS: ADMIT Internal Medicine; ATTEND Internal Medicine
DX: R55 Syncope and collapse (principal); I95.9 Hypotension, unspecified; I10 Essential (primary) hypertension; I49.3 Ventricular premature depolarization; I25.10 Atherosclerotic heart disease of native coronary artery without angina pectoris; I48.0 Paroxysmal atrial fibrillation; Z95.1 Presence of aortocoronary bypass graft; Z79.899 Other long term (current) drug therapy; Z79.01 Long term (current) use of anticoagulants; Z79.82 Long term (current) use of aspirin; Z88.1 Allergy status to other antibiotic agents; Z88.2 Allergy status to sulfonamides; G62.9 Polyneuropathy, unspecified
CPT/HCPCS: 36415; 71045; 80053; 83605; 84484; 85025; 85610; 93005; 93306; 99283; A9270-GY; G0378

== ENCOUNTER 2018-04-25 03:54 | Emergency (ER) | payer MEDICARE ==
[2018-04-25] MEDS ORDERED: Aspirin 81 mg CHEW TAB* 81 MG TAB.CHEW PO ONE (04:03)
[2018-04-25] MEDS ORDERED: Diltiazem DRIP* 100 MG/100 ML ADDV.BAG IVPB ONE (04:03)
[2018-04-25] MEDS ORDERED: Diltiazem IV* 5 MG/ML 5 ML VIAL (for loading dose/IV Push) (25 MG) IV PUSH ONE (04:03)
[2018-04-25] MEDS ORDERED: NS 0.9% 1000 ML* 1,000 ML IV ONE (04:03)
[2018-04-25] MEDS ORDERED: Diltiazem IV* 5 MG/ML 5 ML VIAL (for loading dose/IV Push) (25 MG) ONE (04:05)
[2018-04-25] MEDS ORDERED: Diltiazem IV VIAL* 125 MG in NS 0.9% 100 ML* 100 ML IV STA (04:13)
[2018-04-25] MEDS ORDERED: Famotidine IV* 10 MG/ML 2 ML (20 mg) IV SLOW PU ONE (04:19)
[2018-04-25 04:38] LABS: ABS Basophils 0.1 10^3/ul (0-0.2); ABS Eosinophils 0.1 10^3/ul (0-0.6); ABS Lymphocytes 1.1 10^3/ul (1.0-4.8); ABS Monocytes 1.2 10^3/ul (0-0.8); ABS Neutrophils 6.1 10^3/ul (1.5-7.7); ABS Nucleated RBC 0 10^3/ul; Eosinophil % 1.3 % (0-6); Hematocrit 40 % (42-52); Hemoglobin 13.3 g/dl (14.0-18.0); Lymphocyte % 12.6 % (25-47); Mean Corpuscular HGB Conc 33 g/dl (31-36); Mean Corpuscular Hemoglobin 26 pg (27-31); Mean Corpuscular Volume 79 fL (80-94); Mean Platelet Volume 8.1 um3 (7.4-10.4); Nucleated Red Blood Cells % 0.1; Platelet Count 249 10^3/ul (150-450); Red Blood Count 5.12 10^6/ul (4.00-5.40); Red Cell Distribution Width 15 % (10.5-15); White Blood Count 8.5 10^3/ul (3.5-10.8)
[2018-04-25 04:42] LABS: INR 1.81 (0.77-1.02)
[2018-04-25 04:54] LABS: EGFR Non-African American 79.6 (>60)
--- NOTE | 2018-04-25 05:03 | ED ---
Nury Barrera Jade, scribed for Tobias Jackman MD on 04/25/18 at 0404 . HPI Chest Pain - HPI Summary HPI Summary: Pt is a 67 y/o male who presents to the ED c/o CP 6 weeks s/p CABG. He states 3 days ago he started to have GERD which has slowly worsened. Pt states at a certain point his GERD starts to affect his HR, and in the past has caused PVCs and AFib. Usually the pt will burp to release the pressure, which brings his HR back to normal. At 12:45 today he started to have 6/10 epigastric pain radiating to his chest. He states he can feel the palpitations, and denies any SOB or N/V. Pt states he burped for 3 hours, but it didnt help his HR slow. He does not take any medications for the GERD, and denies taking any medications tonight. Pt denies ever needing to be cardioverted. Pt takes Warfarin and ASA daily. - History of Current Complaint Hx Obtained From: Patient Onset/Duration: Started Hours Ago - 12:45, Still Present Timing: Constant Current Severity: Moderate Pain Intensity: 6 Pain Scale Used: 0-10 Numeric Chest Pain Location: Mid Sternal Chest Pain Radiates: Yes Chest Pain Radiates To:: Epigastric Character: Fast, Irregular Aggravating Factor(s): Nothing Alleviating Factor(s): Nothing Associated Signs and Symptoms: Negative: Shortness of Breath, Nausea, Vomiting - Additional Pertinent History Primary Care Physician: [id number] - Allergy/Home Medications Allergies/Adverse Reactions: Allergies Allergy/AdvReac Type Severity Reaction Status Date / Time ciprofloxacin Allergy Intermediate Itching Verified 04/25/18 04:18 Sulfa (Sulfonamide Allergy Swelling Verified 04/25/18 04:18 Antibiotics) PMH/Surg Hx/FS Hx/Imm Hx Endocrine/Hematology History: Denies: Hx Anticoagulant Therapy, Hx Diabetes Cardiovascular History: Reports: Hx Hypercholesterolemia, Hx Hypertension, Other Cardiovascular Problems/Disorders - PT.STATES ? AFIB Denies: Hx Angina, Hx Congestive Heart Failure, Hx Coronary Artery Disease, Hx Myocardial Infarction, Hx Peripheral Vascular Disease, Hx Valvular Heart Disease Respiratory History: Denies: Hx Asthma, Hx Chronic Obstructive Pulmonary Disease (COPD) GI History: Reports: Hx Gastroesophageal Reflux Disease Musculoskeletal History: Denies: Hx Arthritis Sensory History: Reports: Hx Contacts or Glasses Denies: Hx Hearing Aid Opthamlomology History: Reports: Hx Contacts or Glasses Neurological History: Denies: Hx Headaches, Hx Seizures, Hx Transient Ischemic Attacks (TIA) - Surgical History Surgery Procedure, Year, and Place: appy, tonsillectomy, cardiac bypass 03/11/18 Infectious Disease History: No Infectious Disease History: Denies: Hx Hepatitis, Hx Human Immunodeficiency Virus (HIV), Hx of Known/ Suspected MRSA, Hx Shingles, Hx Tuberculosis, Traveled Outside the [place] in Last 30 Days - Family History Known Family History: Positive: Other - A Fib - Social History Alcohol Use: Rare Substance Use Type: Reports: None Hx Tobacco Use: No Smoking Status (MU): Never Smoked Tobacco Review of Systems Positive: Palpitations, Chest Pain Negative: Shortness Of Breath Gastrointestinal: Other - heartburn Negative: Vomiting, Nausea All Other Systems Reviewed And Are Negative: Yes Physical Exam - Summary Physical Exam Summary: Appearance: Well appearing, no pain distress Skin: warm, dry, reflects adequate perfusion. Vein harvest site is well-healed. Head/face: normal Eyes: EOMI, HIRAL ENT: normal Neck: supple, non-tender Respiratory: CTA, breath sounds present Cardiovascular: Pulses rapid with irregularly irregular rhythm. No LE edema. No JVD. Abdomen: non-tender, soft. Sternotomy scar. Chest drain sites well-healed. Bowel Sounds: present Musculoskeletal: normal, strength/ROM intact Neuro: normal, sensory motor intact, A&Ox3 Triage Information Reviewed: Yes Vital Signs On Initial Exam: Initial Vitals Temp Pulse Resp BP Pulse Ox 98.1 F 166 20 131/90 93 04/25/18 03:56 04/25/18 03:56 04/25/18 03:56 04/25/18 03:56 04/25/18 03:56 Vital Signs Reviewed: Yes Diagnostics - Vital Signs Vital Signs Temp Pulse Resp BP Pulse Ox 04/25/18 03:56 98.1 F 166 20 131/90 93 - Laboratory Lab Results: Lab Results 04/25/18 04/25/18 04/25/18 Range/Units 04:18 04:19 04:19 WBC 8.5 (3.5-10.8) 10^3/ul RBC 5.12 (4.00-5.40) 10^6/ul Hgb 13.3 L (14.0-18.0) g/dl Hct 40 L (42-52) % MCV 79 L (80-94) fL MCH 26 L (27-31) pg MCHC 33 (31-36) g/dl RDW 15 (10.5-15) % Plt Count 249 (150-450) 10^3/ul MPV 8.1 (7.4-10.4) um3 Neut % (Auto) 70.8 (38-83) % Lymph % (Auto) 12.6 L (25-47) % [place] % (Auto) 14.6 H (0-7) % Eos % (Auto) 1.3 (0-6) % Baso % (Auto) 0.7 (0-2) % Absolute Neuts (auto) 6.1 (1.5-7.7) 10^3/ul Absolute Lymphs (auto) 1.1 (1.0-4.8) 10^3/ul Absolute Monos (auto) 1.2 H (0-0.8) 10^3/ul Absolute Eos (auto) 0.1 (0-0.6) 10^3/ul Absolute Basos (auto) 0.1 (0-0.2) 10^3/ul Absolute Nucleated RBC 0 10^3/ul Nucleated RBC % 0.1 INR (Anticoag Therapy) 1.81 H (0.77-1.02) Sodium 137 (135-145) mmol/L Potassium 3.7 (3.5-5.0) mmol/L Chloride 101 (101-111) mmol/L Carbon Dioxide 26 (22-32) mmol/L Anion Gap 10 (2-11) mmol/L BUN 17 (6-24) mg/dL Creatinine 0.95 (0.67-1.17) mg/dL Est GFR ( Amer) 96.3 (>60) Est GFR (Non-Af Amer) 79.6 (>60) BUN/Creatinine Ratio 17.9 (8-20) Glucose 122 H (70-100) mg/dL Lactic Acid (0.5-2.0) mmol/L Calcium 9.0 (8.6-10.3) mg/dL Total Bilirubin 0.90 (0.2-1.0) mg/dL AST 12 L (13-39) U/L ALT 12 (7-52) U/L Alkaline Phosphatase 87 (34-104) U/L Troponin I 0.03 (<0.04) ng/mL B-Natriuretic Peptide ( - 100) pg/mL Total Protein 6.5 (6.4-8.9) g/dL Albumin 3.7 (3.2-5.2) g/dL Globulin 2.8 (2-4) g/dL Albumin/Globulin Ratio 1.3 (1-3) Vitamin B12 Pending TSH Pending 04/25/18 04/25/18 Range/Units 04:19 04:19 WBC (3.5-10.8) 10^3/ul RBC (4.00-5.40) 10^6/ul Hgb (14.0-18.0) g/dl Hct (42-52) % MCV (80-94) fL MCH (27-31) pg MCHC (31-36) g/dl RDW (10.5-15) % Plt Count (150-450) 10^3/ul MPV (7.4-10.4) um3 Neut % (Auto) (38-83) % Lymph % (Auto) (25-47) % [place] % (Auto) (0-7) % Eos % (Auto) (0-6) % Baso % (Auto) (0-2) % Absolute Neuts (auto) (1.5-7.7) 10^3/ul Absolute Lymphs (auto) (1.0-4.8) 10^3/ul Absolute Monos (auto) (0-0.8) 10^3/ul Absolute Eos (auto) (0-0.6) 10^3/ul Absolute Basos (auto) (0-0.2) 10^3/ul Absolute Nucleated RBC 10^3/ul Nucleated RBC % INR (Anticoag Therapy) (0.77-1.02) Sodium (135-145) mmol/L Potassium (3.5-5.0) mmol/L Chloride (101-111) mmol/L Carbon Dioxide (22-32) mmol/L Anion Gap (2-11) mmol/L BUN (6-24) mg/dL Creatinine (0.67-1.17) mg/dL Est GFR ( Amer) (>60) Est GFR (Non-Af Amer) (>60) BUN/Creatinine Ratio (8-20) Glucose (70-100) mg/dL Lactic Acid 1.0 (0.5-2.0) mmol/L Calcium (8.6-10.3) mg/dL Total Bilirubin (0.2-1.0) mg/dL AST (13-39) U/L ALT (7-52) U/L Alkaline Phosphatase (34-104) U/L Troponin I (<0.04) ng/mL B-Natriuretic Peptide 98 ( - 100) pg/mL Total Protein (6.4-8.9) g/dL Albumin (3.2-5.2) g/dL Globulin (2-4) g/dL Albumin/Globulin Ratio (1-3) Vitamin B12 TSH Result Diagrams: 04/25/18 04:19 04/25/18 04:18 Lab Statement: Any lab studies that have been ordered have been reviewed, and results considered in the medical decision making process. - Radiology CXR Xray Interpretation: No Acute Changes - Cardiomegaly, small left pleural effusion. Improved from previous EKG. Impending official radiology report. Radiology Interpretation Completed By: ED Physician - EKG 03:45 Cardiac Rate: Tachycardia - 141 bpm EKG Rhythm: Atrial Fibrillation EKG Interpretation: Nl axis, low voltage, minimal lateral ST depression Re-Evaluation - Re-Evaluation First Eval Re-Evaluation Time: 05:03 Change: Improved - Subxiphoid/epigastric discomfort now gone. Heart rate down into the 110s. Chest Pain Course/Dx - Course Course Of Treatment: Patient with recent cardiac bypass surgery with intermittent reflux symptoms that have caused atrial fibrillation in the past. He is maintained on Coumadin and was previously on amiodarone after surgery. Today, he presents with rapid atrial fibrillation and with rates of 140-160. Diltiazem bolus and drip initiated. Improvement of the rate. No significant chest pain other than epigastric discomfort. This resolved with Pepcid. Hospitalist contacted and will evaluate the patient at bedside and admit. Cardiology in the morning. - Chest Pain Differential Diagnosis/HQI/PQRI: Acute AR, ACS, Angina, Other: - Rapid A. fib - Diagnoses Provider Diagnoses: Chest pain, Atrial fibrillation with rapid ventricular response - Provider Notifications Discussed Care Of Patient With: Fito Singh Time Discussed With Above Provider: 04:16 Instructed by Provider To: Admit As Inpatient - Dr. Singh will see pt in the ED and accept pt for admission. - Critical Care Time Critical Care Time: 30-74 min - CCT is EXCLUSIVE of separately billable procedures. Discharge - Sign-Out/Discharge Documenting (check all that apply): Discharge/Admit/Transfer - Admit - Discharge Plan Condition: Guarded Disposition: ADMITTED TO [facility] Referrals: Devin Larsen MD [Primary Care Provider] - - Billing Disposition and Condition Condition: GUARDED Disposition: Admitted to [facility] The documentation as recorded by the Nury casas Jade accurately reflects the service I personally performed and the decisions made by , Tobias Jackman MD.
--- NOTE | 2018-04-25 08:52 | RAD ---
INDICATION: Chest pain COMPARISON: Most recent comparison chest x-rays dated March 20, 2018 TECHNIQUE: Single AP portable view of the chest was obtained. FINDINGS: Image quality is compromised due to the relative inferiority of a portable chest x-ray. Postsurgical changes include sternotomy wires and surgical clips overlying the mediastinum. There is [id number] cardiomegaly. There is density obscuring the left lung base and obscuring the left hemidiaphragm. Visualized bones are normal for the patient's age. IMPRESSION: There is density obscuring the left hemidiaphragm similar in appearance to the previous chest x-ray possibly representing a moderate to large left pleural effusion. Additional chronic findings are described above as well.
[2018-04-25] MEDS ORDERED: Metoprolol Tartrate TAB* 50 mg PO SCH ×2 (10:00→21:00)
[2018-04-25 11:53] VITALS: BP 122/70
[2018-04-25] MEDS ORDERED: Amiodarone TAB* 200 MG PO SCH (12:00)
--- NOTE | 2018-04-25 14:33 | CONS ---
CC: Dr. Larsen; Dr. Nunez CONSULTATION REPORT: DATE OF CONSULTATION: 04/25/18 HISTORY OF PRESENT ILLNESS: This 67-year-old man presented with palpitations. He was in his usual [facility] the day before admission. About 1:15 in the morning, he had been asleep, he was woken up by what he describes as GERD. He said he had some pressure and he had to belch a lot and he stat es usually this has in the past brought on atrial fibrillation. He waited several hours to see if it will go away. He got up and walked around, he was not dizzy. He finally came to the emergency room and he was still in atrial fibrillation. EKG showed a rate of 141. He was placed on diltiazem drip. A few hours later, he converted to sinus rhythm. He continues to feel fine. He could tell that he feels actually much better now that he is in sinus rhythm. I note that he had 3 troponin levels in [facility] emergency room, all of which were within normal limits. I note the patient had 6 bypass grafts at [facility] on 03/11/18. He had atrial fibrillation the day of surgery. He was placed on warfarin and amiodarone. The amiodarone was discontinued about 10 days ago. He is still on warfarin. The patient does not smoke. He does not abuse alcohol. He really did nothing different yesterday. He did have the first day of cardiac rehab, which he states was very low level and gave him no proble ms at all. He did some arm bicycle work and some treadmill exercise and some other exercises without any difficulty. He does not drink much caffeine. PHYSICAL EXAMINATION: Really unrevealing. His vital signs at 10 a.m. were blood pressure 112/67, O2 sat 94% on room air, heart rate 67, temperature 98.1 on arrival at the emergency room. Physical examination was unrevealing. The patient was alert and comfortable, breathing easily. He h ad no discomfort. He had a median sternotomy scar. There is no pedal edema or calf tenderness. I discussed the case with Dr. Nunez. He is going to [facility] another month of amiodarone. He will take 200 mg twice a day for 5 days and 200 mg once a day for 25 days. He will have his INR checked in 2 days at the hospital and have it again checked next week by Dr. Larsen. Dr. Nunez is ordering an event monitor for him and will see him in followup in the office in 10 to 14 days. [id number]/[facility] #: [id number]
== END 2018-04-25 11:55 | disposition short-term general hospital (02) ==
LOC: ED 03:54
DX: R07.9 Chest pain, unspecified (principal); I48.91 Unspecified atrial fibrillation; I51.7 Cardiomegaly; Z79.01 Long term (current) use of anticoagulants; Z79.82 Long term (current) use of aspirin; Z88.3 Allergy status to other anti-infective agents; Z88.0 Allergy status to penicillin; Z95.1 Presence of aortocoronary bypass graft
CPT/HCPCS: 36415; 71045; 80053; 82607; 83605; 83880; 84443; 84484; 85025; 85610; 93005; 96361; 96374; 96375; 99284; A9270-GY

== ENCOUNTER 2018-04-26 19:19 | Emergency (ER) | payer MEDICARE ==
[2018-04-26] MEDS ORDERED: Omeprazole CAP* 20 MG ONE (21:37)
[2018-04-26] MEDS ORDERED: Omeprazole CAP* 20 MG PO ONE (21:40)
[2018-04-26 22:21] LABS: ABS Basophils 0 10^3/ul (0-0.2); ABS Eosinophils 0.1 10^3/ul (0-0.6); ABS Lymphocytes 1.3 10^3/ul (1.0-4.8); ABS Neutrophils 5.5 10^3/ul (1.5-7.7); ABS Nucleated RBC 0 10^3/ul; Hematocrit 39 % (42-52); Hemoglobin 12.8 g/dl (14.0-18.0); Mean Corpuscular HGB Conc 33 g/dl (31-36); Mean Corpuscular Hemoglobin 26 pg (27-31); Mean Corpuscular Volume 79 fL (80-94); Mean Platelet Volume 7.9 um3 (7.4-10.4); Nucleated Red Blood Cells % 0; Platelet Count 256 10^3/ul (150-450); Red Blood Count 4.95 10^6/ul (4.00-5.40); Red Cell Distribution Width 15 % (10.5-15); White Blood Count 7.9 10^3/ul (3.5-10.8)
[2018-04-26 22:33] LABS: INR 1.95 (0.77-1.02)
--- NOTE | 2018-04-26 23:57 | ED ---
Nury Barrera Jade, scribed for Davonte Moulton on 04/26/18 at 2204 . Abdominal Pain/Male - HPI Summary HPI Summary: Pt is a 67 y/o male who presents to the ED c/o abdominal pain. Pt states that whenever he eats anything, he goes into AFib, has PVCs, lightheadedness, tachycardia, and severe burping 30 minutes later. He also gets sharp epigastric pain rated a 7/10 in severity that feels like a spasm, which resolves to a 2/ 10. He states that he had 6 CABG 6 weeks ago, so is worried about his heart. He has been having the symptoms for 4 days, and was admitted to [facility] 2 days ago but released because he converted. Pt is on Xyralto and Warfarin, and was given Pepsid in the hospital 2 days ago which has not helped. Tonight all he ate was a yogurt, which set off his cardiac symptoms. Pt denies any PMHx of VA, gallstones, or chronic AFib. - History of Current Complaint Chief Complaint: EDAbdPain Stated Complaint: ABD PAIN/AFIB Time Seen by Provider: 04/26/18 21:06 Hx Obtained From: Patient Onset/Duration: Gradual Onset, Lasting Days - 4, Still Present Timing: Intermittent Severity Currently: Moderate Pain Intensity: 4 Pain Scale Used: 0-10 Numeric Location: Epigastric Radiates: No Character: Other: - Spasm Aggravating Factor(s): Food Alleviating Factor(s): Spontaneous Resolution Associated Signs And Symptoms: Positive: Other - Burping, AFib, lightheadedness - Allergies/Home Medications Allergies/Adverse Reactions: Allergies Allergy/AdvReac Type Severity Reaction Status Date / Time ciprofloxacin Allergy Intermediate Itching Verified 04/26/18 19:31 Sulfa (Sulfonamide Allergy Swelling Verified 04/26/18 19:31 Antibiotics) PMH/Surg Hx/FS Hx/Imm Hx Endocrine/Hematology History: Denies: Hx Anticoagulant Therapy, Hx Diabetes Cardiovascular History: Reports: Hx Hypercholesterolemia, Hx Hypertension, Other Cardiovascular Problems/Disorders - PT.STATES ? AFIB Denies: Hx Angina, Hx Atrial Fibrillation, Hx Congestive Heart Failure, Hx Coronary Artery Disease, Hx Myocardial Infarction, Hx Peripheral Vascular Disease, Hx Valvular Heart Disease Respiratory History: Denies: Hx Asthma, Hx Chronic Obstructive Pulmonary Disease (COPD) GI History: Reports: Hx Gastroesophageal Reflux Disease History: Denies: Other Problems/Disorders - Gallstones Musculoskeletal History: Denies: Hx Arthritis Sensory History: Reports: Hx Contacts or Glasses Denies: Hx Hearing Aid Opthamlomology History: Reports: Hx Contacts or Glasses Neurological History: Denies: Hx Headaches, Hx Seizures, Hx Transient Ischemic Attacks (TIA) - Surgical History Surgery Procedure, Year, and Place: appy, tonsillectomy, cardiac bypass 03/11/18 Infectious Disease History: No Infectious Disease History: Denies: Hx Hepatitis, Hx Human Immunodeficiency Virus (HIV), Hx of Known/ Suspected MRSA, Hx Shingles, Hx Tuberculosis, Traveled Outside the [place] in Last 30 Days - Family History Known Family History: Positive: Other - A Fib - Social History Alcohol Use: Rare Substance Use Type: Reports: None Hx Tobacco Use: No Smoking Status (MU): Never Smoked Tobacco Review of Systems Positive: Palpitations, Other - AFib, PVCs, tachycardia Positive: Abdominal Pain - Epigastric, Other - Burping Neurological: Other - Lightheadedness All Other Systems Reviewed And Are Negative: Yes Physical Exam - Summary Physical Exam Summary: Appearance: Well appearing, no pain distress Skin: warm, dry, reflects adequate perfusion Head/face: normal Eyes: EOMI, HIRAL ENT: normal Neck: supple, non-tender Respiratory: CTA, breath sounds present Cardiovascular: RRR, pulses symmetrical Abdomen: non-tender, soft Bowel: present Musculoskeletal: normal, strength/ROM intact Neuro: normal, sensory motor intact, A&Ox3 Triage Information Reviewed: Yes Vital Signs On Initial Exam: Initial Vitals Temp Pulse Resp BP Pulse Ox 97.3 F 76 16 124/79 90 04/26/18 19:29 04/26/18 19:29 04/26/18 19:29 04/26/18 19:29 04/26/18 19:29 Vital Signs Reviewed: Yes Diagnostics - Vital Signs Vital Signs Temp Pulse Resp BP Pulse Ox 04/26/18 19:29 97.3 F 76 16 124/79 90 - Laboratory Lab Results: Lab Results 04/26/18 04/26/18 04/26/18 Range/Units 22:12 22:12 22:12 WBC 7.9 (3.5-10.8) 10^3/ul RBC 4.95 (4.00-5.40) 10^6/ul Hgb 12.8 L (14.0-18.0) g/dl Hct 39 L (42-52) % MCV 79 L (80-94) fL MCH 26 L (27-31) pg MCHC 33 (31-36) g/dl RDW 15 (10.5-15) % Plt Count 256 (150-450) 10^3/ul MPV 7.9 (7.4-10.4) um3 Neut % (Auto) 70.0 (38-83) % Lymph % (Auto) 16.0 L (25-47) % [place] % (Auto) 12.6 H (0-7) % Eos % (Auto) 1.0 (0-6) % Baso % (Auto) 0.4 (0-2) % Absolute Neuts (auto) 5.5 (1.5-7.7) 10^3/ul Absolute Lymphs (auto) 1.3 (1.0-4.8) 10^3/ul Absolute Monos (auto) 1.0 H (0-0.8) 10^3/ul Absolute Eos (auto) 0.1 (0-0.6) 10^3/ul Absolute Basos (auto) 0 (0-0.2) 10^3/ul Absolute Nucleated RBC 0 10^3/ul Nucleated RBC % 0 INR (Anticoag Therapy) 1.95 H (0.77-1.02) APTT 32.7 (26.0-36.3) seconds Sodium 138 (135-145) mmol/L Potassium 4.0 (3.5-5.0) mmol/L Chloride 100 L (101-111) mmol/L Carbon Dioxide 29 (22-32) mmol/L Anion Gap 9 (2-11) mmol/L BUN 13 (6-24) mg/dL Creatinine 1.00 (0.67-1.17) mg/dL Est GFR ( Amer) 90.7 (>60) Est GFR (Non-Af Amer) 75.0 (>60) BUN/Creatinine Ratio 13.0 (8-20) Glucose 111 H (70-100) mg/dL Lactic Acid (0.5-2.0) mmol/L Calcium 9.3 (8.6-10.3) mg/dL Total Bilirubin 1.10 H (0.2-1.0) mg/dL AST 13 (13-39) U/L ALT 13 (7-52) U/L Alkaline Phosphatase 75 (34-104) U/L Troponin I 0.03 (<0.04) ng/mL Total Protein 7.2 (6.4-8.9) g/dL Albumin 3.7 (3.2-5.2) g/dL Globulin 3.5 (2-4) g/dL Albumin/Globulin Ratio 1.1 (1-3) Lipase < 10 L (11.0-82.0) U/L 04/26/18 Range/Units 22:12 WBC (3.5-10.8) 10^3/ul RBC (4.00-5.40) 10^6/ul Hgb (14.0-18.0) g/dl Hct (42-52) % MCV (80-94) fL MCH (27-31) pg MCHC (31-36) g/dl RDW (10.5-15) % Plt Count (150-450) 10^3/ul MPV (7.4-10.4) um3 Neut % (Auto) (38-83) % Lymph % (Auto) (25-47) % [place] % (Auto) (0-7) % Eos % (Auto) (0-6) % Baso % (Auto) (0-2) % Absolute Neuts (auto) (1.5-7.7) 10^3/ul Absolute Lymphs (auto) (1.0-4.8) 10^3/ul Absolute Monos (auto) (0-0.8) 10^3/ul Absolute Eos (auto) (0-0.6) 10^3/ul Absolute Basos (auto) (0-0.2) 10^3/ul Absolute Nucleated RBC 10^3/ul Nucleated RBC % INR (Anticoag Therapy) (0.77-1.02) APTT (26.0-36.3) seconds Sodium (135-145) mmol/L Potassium (3.5-5.0) mmol/L Chloride (101-111) mmol/L Carbon Dioxide (22-32) mmol/L Anion Gap (2-11) mmol/L BUN (6-24) mg/dL Creatinine (0.67-1.17) mg/dL Est GFR ( Amer) (>60) Est GFR (Non-Af Amer) (>60) BUN/Creatinine Ratio (8-20) Glucose (70-100) mg/dL Lactic Acid 1.7 (0.5-2.0) mmol/L Calcium (8.6-10.3) mg/dL Total Bilirubin (0.2-1.0) mg/dL AST (13-39) U/L ALT (7-52) U/L Alkaline Phosphatase (34-104) U/L Troponin I (<0.04) ng/mL Total Protein (6.4-8.9) g/dL Albumin (3.2-5.2) g/dL Globulin (2-4) g/dL Albumin/Globulin Ratio (1-3) Lipase (11.0-82.0) U/L Result Diagrams: 04/26/18 22:12 04/26/18 22:12 Lab Statement: Any lab studies that have been ordered have been reviewed, and results considered in the medical decision making process. - Ultrasound No standard instances Ultrasound Interpretation: No Acute Changes - 23:00 No acute findings. ED physician reviewed radiology report. Ultrasound Interpretation Completed By: Radiologist Abdominal Pain Fem Course/Dx - Course Course Of Treatment: Pt is a 67 y/o male c/o abdominal pain, palpitations, and burping after eating, who was released from [facility] 2 days ago after converting. He states that he had 6 CABG 6 weeks ago, so is worried about his heart. A physical exam was normal. An abdominal US revealed no acute findings. Pt denied a CXR and EKG, stating that they will be negative. Blood work was obtained. He did not want to be admitted, and wants to follow up with outpatient. Final dx is abdominal pain, and pt is discharged. He is prescribed Pantoprazole. Pt is agreeable with this plan and is to follow up with his PCP in 3 days. - Diagnoses Differential Diagnosis/HQI/PQRI: ACS, Gall Bladder Disease Provider Diagnoses: Abdominal pain Discharge - Sign-Out/Discharge Documenting (check all that apply): Discharge/Admit/Transfer - Discharge - Discharge Plan Condition: Stable Disposition: HOME Prescriptions: Pantoprazole TAB (NF) [Protonix TAB (NF)] 40 mg PO DAILY #30 tab Patient Education Materials: Abdominal Pain (ED) Referrals: Devin Larsen MD [Primary Care Provider] - 3 Days - Billing Disposition and Condition Condition: STABLE Disposition: Home The documentation as recorded by the Nury casas Jade accurately reflects the service I personally performed and the decisions made by Kenney arredondo Emmanuel.
[2018-04-27 00:01] VITALS: BP 100/84
--- NOTE | 2018-04-27 09:11 | RAD ---
Indication: Right upper quadrant pain. Real-time sonography of the right upper quadrant was performed. The liver measures 15.9 cm in length. No focal lesions or intrahepatic ductal dilatation is noted. The gallbladder demonstrates no gallstones, pericholecystic fluid or wall thickening. Common duct measures 0.4 cm. The right kidney measures 10.4 x 6.3 x 4.9 cm with no hydronephrosis. The pancreas is obscured. IMPRESSION: No evidence of cholelithiasis or biliary duct dilatation.
== END 2018-04-27 00:02 | disposition home or self-care (01) ==
LOC: ED 19:19
DX: R10.9 Unspecified abdominal pain (principal); R00.2 Palpitations; R42 Dizziness and giddiness
CPT/HCPCS: 36415; 76705; 80053; 83605; 83690; 84484; 85025; 85610; 85730; 99283; A9270-GY

== ENCOUNTER 2018-05-07 14:27 | Emergency (ER) | payer MEDICARE ==
[2018-05-07] MEDS ORDERED: NS 0.9% 1000 ML* 1,000 ML IV ONE (15:08)
--- NOTE | 2018-05-07 15:12 | ED ---
Abdominal Pain/Male - HPI Summary HPI Summary: This patient is a 67 year old M presenting to ED with a chief complaint of epigastric pain since 2 weeks ago on 04/22/18. At the time of onset, he had a bit of an upset stomach. The next day after waking up it was a little worse. He was doing cardio rehab. The next morning, the pain kicked him into afib. He had conversion in the ED and was sent home with famotidine. He was okay the next day but the day after the pain came again with afib. He went into the ED again but converted while in the waiting room. The provider did an US and bloodwork which was normal. He took 1 pill of omeprazole and was good for 4-5 days. After that, the pain came back again but his heart rhythm has been fine. His HR was up due to metoprolol. The patient then stopped taking it and his BP has been the best its ever been. The pain currently is described as a stabbing pain, like twisting a knife. The patient reports that two years ago in April, he had an episode that lasted a week and before then they had only lasted a couple hours. 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 The patient rates the pain 6/10 in severity. Symptoms aggravated by lying down and straightening up. Symptoms alleviated by sitting forward. Patient reports SOB secondary to pain. Patient denies dizziness, light-headed, and N/V. - History of Current Complaint Chief Complaint: EDAbdPain Stated Complaint: ABD PAIN Hx Obtained From: Patient Onset/Duration: Sudden Onset, Lasting Days, Still Present Timing: Intermittent, Lasting Hours Severity Initially: Moderate Severity Currently: Moderate Pain Intensity: 6 Pain Scale Used: 0-10 Numeric Location: Epigastric Character: Sharp, Other: - like twisting a knife Aggravating Factor(s): Other: - Symptoms aggravated by lying down and straightening up. Alleviating Factor(s): Other: - Symptoms alleviated by sitting forward. Associated Signs And Symptoms: Positive: Other - Patient reports SOB secondary to pain. Patient denies dizziness, light-headed, and N/V. - Allergies/Home Medications Allergies/Adverse Reactions: Allergies Allergy/AdvReac Type Severity Reaction Status Date / Time ciprofloxacin Allergy Intermediate Itching Verified 05/07/18 14:35 Sulfa (Sulfonamide Allergy Swelling Verified 05/07/18 14:35 Antibiotics) Home Medications: Home Medications Amiodarone TAB* [Cordarone Tab*] 200 mg PO DAILY 05/07/18 [History Confirmed 08/15] Pantoprazole TAB (NF) [Protonix TAB (NF)] 40 mg PO DAILY 05/07/18 [History Confirmed 05/07/18] Warfarin TAB(*) [Coumadin TAB(*)] 4 mg PO DAILY 05/07/18 [History Confirmed 08/15] PMH/Surg Hx/FS Hx/Imm Hx Endocrine/Hematology History: Denies: Hx Anticoagulant Therapy, Hx Diabetes Cardiovascular History: Reports: Hx Hypercholesterolemia, Hx Hypertension, Other Cardiovascular Problems/Disorders - PT.STATES ? AFIB Denies: Hx Angina, Hx Atrial Fibrillation, Hx Congestive Heart Failure, Hx Coronary Artery Disease, Hx Myocardial Infarction, Hx Peripheral Vascular Disease, Hx Valvular Heart Disease Respiratory History: Denies: Hx Asthma, Hx Chronic Obstructive Pulmonary Disease (COPD) GI History: Reports: Hx Gastroesophageal Reflux Disease History: Denies: Other Problems/Disorders - Gallstones Musculoskeletal History: Denies: Hx Arthritis Sensory History: Reports: Hx Contacts or Glasses Denies: Hx Hearing Aid Opthamlomology History: Reports: Hx Contacts or Glasses Neurological History: Denies: Hx Headaches, Hx Seizures, Hx Transient Ischemic Attacks (TIA) - Surgical History Surgery Procedure, Year, and Place: appy, tonsillectomy, cardiac bypass 03/11/18 Infectious Disease History: No Infectious Disease History: Denies: Hx Hepatitis, Hx Human Immunodeficiency Virus (HIV), Hx of Known/ Suspected MRSA, Hx Shingles, Hx Tuberculosis, Traveled Outside the [place] in Last 30 Days - Family History Known Family History: Positive: Other - A Fib - Social History Alcohol Use: Rare Substance Use Type: Reports: None Hx Tobacco Use: No Smoking Status (MU): Never Smoked Tobacco Review of Systems Positive: Shortness Of Breath - secondary to pain Positive: Abdominal Pain - epigastric pain. Negative: Vomiting, Nausea Neurological: Other - denies dizziness, light-headedness All Other Systems Reviewed And Are Negative: Yes Physical Exam - Summary Physical Exam Summary: Appearance: Well-appearing, Well-nourished, lying in bed comfortably Skin: Warm, dry, no obvious rash Eyes: sclera anicteric, no conjunctival pallor ENT: mucous membranes moist, pharynx appears normal Neck: Supple, nontender Respiratory: Clear to auscultation, no signs of respiratory distress Cardiovascular: Normal S1, S2. No murmurs. Normal distal pulses in tibial and radial bilaterally. Abdomen: Soft, nontender, normal active bowel sounds present Musculoskeletal: Normal, Strength/ROM Intact Neurological: A&Ox3, awake and alert, mentation is normal, speech is fluent and appropriate Psychiatric: affect is normal, does not appear anxious or depressed Triage Information Reviewed: Yes Vital Signs On Initial Exam: Initial Vitals Temp Pulse Resp BP Pulse Ox 97.8 F 110 18 143/81 95 05/07/18 14:31 05/07/18 14:31 05/07/18 14:31 05/07/18 14:31 05/07/18 14:31 Vital Signs Reviewed: Yes Diagnostics - Vital Signs Vital Signs Temp Pulse Resp BP Pulse Ox 05/07/18 14:31 97.8 F 110 18 143/81 95 - Laboratory Result Diagrams: 05/07/18 15:39 05/07/18 15:39 Lab Statement: Any lab studies that have been ordered have been reviewed, and results considered in the medical decision making process. - Radiology CXR Radiology Interpretation Completed By: Radiologist - MODERATE LEFT PLEURAL EFFUSION WITH LEFT BASILAR ATELECTASIS VERSUS CONSOLIDATION. ED physician has reviewed this radiology report. - EKG 1515 Cardiac Rate: Tachycardia - 100BPM EKG Rhythm: Sinus Tachycardia - 100 BPM EKG Interpretation: WA is normal, otherwise normal EKG - Additional Comments Diagnostic Additional Comments: Transthoracic Echocardiogram results: Moderate concentric left ventricular hypertrophy is observed. The left ventricle appears hyperdynamic. The estimated ejection fraction is greater than 65%. The aortic valve leaflets are mildly thickened. There is mild aortic regurgitation. The aortic valve leaflets are mildly thickened. This report is only to be considered final once signed by the Provider(s) as displayed in the "<Electronically Signed by >" field (s). Absence of a signature indicates the report is in a draft status and still needs to be finalized. In the event this document was created by someone other than the signing Provider, the individual initiating the document will be listed in the "Entered by:" or "Dictated by:" ha. There is mild aortic regurgitation. There is trace tricuspid regurgitation. There is a small pericardial effusion. There are no signs of significant hemodynamic compromise. A left pleural effusion is present. There is mild dilatation of the ascending aorta. There is mild dilatation of the aortic root. There is mild dilatation of the ascending aorta. The right ventricular global systolic function is mildly reduced. The right ventricle wall thickness is mildly increased. Similar to 03/21/17 except that the small pericardial effusion is slightly larger and the RV function seems slightly reduced this time. Re-Evaluation - Re-Evaluation First Eval Re-Evaluation Time: 15:27 Comment: Discussed the treatment plan for here in the ED. Second Eval Re-Evaluation Time: 17:05 Comment: Pain is slightly better. Currently waiting on echocardiogram. Third Eval Re-Evaluation Time: 18:46 Comment: The patient feels better. Discussed echo results with the patient and the plan for discharge. The patient is agreeable with this plan. 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 Nunez at 1525 about the patient's case. Dr. Nunez agrees with the workup plan for the patient here in the ED and agrees to followup with the patient in his office. 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 The workup today is consistent with that, and did not show any other serious problem. I am starting you on medications usually used for that condition, but if you do not respond or recur steroids are sometimes used, so your doctor will need to monitor you going forward.
[2018-05-07] MEDS ORDERED: Ketorolac INJ* 30 MG/ML 1 ML VIAL IV PUSH ONE (15:18)
--- NOTE | 2018-05-07 15:39 | RAD ---
HISTORY: CP post cardiac surg,?pericard/pleur effusion COMPARISONS: April 25, 2018 VIEWS: 4: Frontal dual-energy and lateral views of the chest. FINDINGS: CARDIOMEDIASTINAL SILHOUETTE: The cardiomediastinal silhouette is normal. SETH: The seth are normal. PLEURA: There is moderate left pleural effusion. LUNG PARENCHYMA: There is confluent alveolar opacification of the left lung base. ABDOMEN: The upper abdomen is clear. There is no subphrenic gas. BONES AND SOFT TISSUES: The patient is status post median sternotomy. OTHER: None. IMPRESSION: MODERATE LEFT PLEURAL EFFUSION WITH LEFT BASILAR ATELECTASIS VERSUS CONSOLIDATION.
[2018-05-07 15:54] LABS: Hematocrit 39 % (42-52); Hemoglobin 13.1 g/dl (14.0-18.0); Mean Corpuscular HGB Conc 33 g/dl (31-36); Mean Corpuscular Hemoglobin 26 pg (27-31); Mean Corpuscular Volume 77 fL (80-94); Mean Platelet Volume 7.6 um3 (7.4-10.4); Platelet Count 337 10^3/ul (150-450); Red Cell Distribution Width 16 % (10.5-15)
[2018-05-07] MEDS ORDERED: Colchicine* 0.6 MG TAB PO SCH (16:00)
[2018-05-07 16:24] LABS: ABS Basophils 0.1 10^3/ul (0-0.2); ABS Eosinophils 0.1 10^3/ul (0-0.6); ABS Lymphocytes 0.8 10^3/ul (1.0-4.8); ABS Neutrophils 9.1 10^3/ul (1.5-7.7); ABS Nucleated RBC 0 10^3/ul; Eosinophil % 0.5 % (0-6); Lymphocyte % 7.7 % (25-47); Nucleated Red Blood Cells % 0
[2018-05-07 16:36] LABS: EGFR Non-African American 73.3 (>60)
[2018-05-07 17:16] VITALS: BP 138/80
--- NOTE | 2018-05-07 17:45 | ECHO ---
Patient: SATISH CHIN [facility] Rec#: [id number] : 1950 Date: 05/07/2018 Age: 67y Height: 185.4 cm / 73.0 in Weight: 105.2 kg / 231.9 lbs Sex: M BSA: 2.29 Room#: ED 5 Admit Date#: 05/07/2018 Type: Outpatient Referring: Hernán Sales MD Reading: Leoncio Nunez MD Saturation Equipment Operator: Eryn Anaya RN RDCS CC: Devin Larsen MD Transthoracic Echocardiogram Indication: Chest pain, suspect pericarditis S/P CABG BP: 143/81 HR: 110 Rhythm: Tachycardia Findings History: S/P CABG 02/2018, HTN, HLD, A. fib Technical Comments: The study quality is fair. The study is technically limited due to patient body habitus. The study is technically limited due to patient being on BIPAP during study. Left Ventricle: The left ventricular chamber size is normal. Moderate concentric left ventricular hypertrophy is observed. Global left ventricular wall motion and contractility are within normal limits. The left ventricle appears hyperdynamic. The estimated ejection fraction is greater than 65%. Ventricular septal wall motion has a post-operative appearance. There is no consistent Doppler evidence of clinically significant diastolic dysfunction. Left Atrium: The left atrial chamber size is normal. Right Ventricle: The right ventricle wall thickness is mildly increased.7 mm. The right ventricular cavity size is normal. The right ventricular global systolic function is mildly reduced. Right Atrium: The right atrium is mildly dilated. Aortic Valve: The aortic valve is trileaflet. The aortic valve leaflets are mildly thickened. There is mild aortic regurgitation. There is no evidence of aortic stenosis. Mitral Valve: The mitral valve leaflets are mildly thickened. There is no evidence of mitral regurgitation. There is no evidence of mitral stenosis. Tricuspid Valve: The tricuspid valve leaflets are normal. There is trace tricuspid regurgitation. Unable to estimate the right ventricular systolic pressure. Pulmonic Valve: The pulmonic valve appears normal. There is a trace pulmonic regurgitation. There is no pulmonic stenosis. Pericardium: There is a small pericardial effusion. There are no signs of significant hemodynamic compromise. The pericardial effusion is fibrinous. A pericardial fat pad is visualized. A left pleural effusion is present. Aorta: There is mild dilatation of the ascending aorta. The aortic arch is not well visualized. There is mild dilatation of the aortic root. Pulmonary Artery: The main pulmonary artery appears normal. Venous: The inferior vena cava appears normal in size. There is a greater than 50% respiratory change in the inferior vena cava dimension. Conclusions Moderate concentric left ventricular hypertrophy is observed. The left ventricle appears hyperdynamic. The estimated ejection fraction is greater than 65%. The aortic valve leaflets are mildly thickened. There is mild aortic regurgitation. The aortic valve leaflets are mildly thickened. There is mild aortic regurgitation. There is trace tricuspid regurgitation. There is a small pericardial effusion. There are no signs of significant hemodynamic compromise. A left pleural effusion is present. There is mild dilatation of the ascending aorta. There is mild dilatation of the aortic root. There is mild dilatation of the ascending aorta. The right ventricular global systolic function is mildly reduced. The right ventricle wall thickness is mildly increased. Similar to 03/21/17 except that the small pericardial effusion is slightly larger and the RV function seems slightly reduced this time. Measurements Name Value Normal Range RVDdMajor (2D) 3.6 cm (2.2 - 4.4) RAd ISD 4CH 5.5 cm (3.4 - 4.9) RA (A4C)W 3.3 cm (2.9 - 4.6) IVSd (2D) 1.5 cm (0.6 - 1) LVPWd (2D) 1.5 cm (0.6 - 1) LVIDd (2D) 4 cm (3.6 - 5.4) LVIDs (2D) 2.7 cm - LV FS (2D) 33 % (25 - 45) Aortic Annulus 2.3 cm (1.4 - 2.6) Ao root diameter (2D) 3.7 cm (2.1 - 3.5) Ascending Ao 3.5 cm (2.1 - 3.4) LA dimension (AP) 2D 3.4 cm (2.3 - 3.8) LAd ISD 4CH 5 cm (2.9 - 5.3) LA ISD 4CH W 3.9 cm (2.5 - 4.5) Name Value Normal Range LA ESV SP 4CH (A/L) 53 ml - LA ESV SP 2CH (A/L) 65 ml - LA ESV BP (A/L) 59 ml - LA ESV BP (A/L) index 26 ml/m2 - LA ESV SP 4CH (MOD) 49 ml - LA ESV SP 2CH (MOD) 63 ml - Name Value Normal Range MV E-wave Vmax 0.83 m/sec - MV deceleration time 150 msec - MV A-wave Vmax 0.72 m/sec - MV E:A ratio 1.1 ratio - LV septal e' Vmax 0.08 m/sec - LV lateral e' Vmax 0.08 m/sec - LV E:e' septal ratio 10.4 ratio - LV E:e' lateral ratio 10.4 ratio - Name Value Normal Range AV Vmax 1.4 m/sec - AV VTI 24.1 cm - AV peak gradient 7.3 mmHg - AV mean gradient 4.6 mmHg - LVOT Vmax 1.2 m/sec - LVOT VTI 19.1 cm - LVOT peak gradient 5.5 mmHg - LVOT mean gradient 2.8 mmHg - Name Value Normal Range IVC diameter 1.2 cm - Name Value Normal Range PV Vmax 1.1 m/sec -
[2018-05-07 18:07] LABS: INR 3.04 (0.77-1.02)
--- NOTE | 2018-05-08 09:18 | ED ---
Progress - Progress Note Progress Note: I did not personally evaluate this patient. Any diagnoses or dispositions listed on this chart were charted by Dr. Galeano. I received a call from the pharmacist for clarification of colchicine and ibuprofen given his status of being on warfarin. The patient was apparently doubled over in pain at the pharmacy desk and present in the pharmacy. Given his presentation of chest pain yesterday, I recommended he return immediately to the emergency department. The pharmacist was going to relay this to the patient. Re-Evaluation - Re-Evaluation First Eval Re-Evaluation Time: 15:27 Comment: Discussed the treatment plan for here in the ED. Second Eval Re-Evaluation Time: 17:05 Comment: Pain is slightly better. Currently waiting on echocardiogram. Third Eval Re-Evaluation Time: 18:46 Comment: The patient feels better. Discussed echo results with the patient and the plan for discharge. The patient is agreeable with this plan. 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 Nunez at 1525 about the patient's case. Dr. Nunez agrees with the workup plan for the patient here in the ED and agrees to followup with the patient in his office. 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 The workup today is consistent with that, and did not show any other serious problem. I am starting you on medications usually used for that condition, but if you do not respond or recur steroids are sometimes used, so your doctor will need to monitor you going forward. - Billing Disposition and Condition Condition: GOOD Disposition: Home
== END 2018-05-07 19:02 | disposition home or self-care (01) ==
LOC: ED 14:27
DX: I24.1 Dressler's syndrome (principal); Z95.1 Presence of aortocoronary bypass graft; R10.13 Epigastric pain; R06.02 Shortness of breath
CPT/HCPCS: 36415; 71046; 80053; 85025; 85610; 86140; 93306; 96361; 96374; 99283; J1885

== ENCOUNTER 2018-05-08 09:37 | Observation (INO) | payer MEDICARE ==
--- NOTE | 2018-05-08 10:52 | ED ---
HPI Chest Pain - HPI Summary HPI Summary: This patient is a 67 year old M presenting to [facility] with a chief complaint of sharp epigastric and chest pain since 2 weeks ago. SHx CABG x6 03/11/18. 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 P notes that sx alleviated for a day or two, then sx returned in full force. I was in agony for two weeks. This AM when awoke pt was in pain, but they have mostly subsided by now. Pt reports that the sx of pain improve s/p eating. Pt denies melena, hematochezia, pain radiation to back. Pt endorsed his sx at time of incident today as SOB, palpitations, nausea, lightheadedness, diaphoresis, chills, AFib, PACs, PVCs".Pt takes warfarin. He notes the sx are exacerbated by deep breaths. - History of Current Complaint Chief Complaint: EDChestPainROMI Time Seen by Provider: 05/08/18 10:00 Hx Obtained From: Patient Onset/Duration: Started Weeks Ago - 2, Still Present - but much improved Timing: Constant, Lasting Weeks Initial Severity: Moderate Current Severity: Mild Pain Intensity: 4 Pain Scale Used: 0-10 Numeric Chest Pain Location: Discrete at: - epigastric towards lower sternal, Lower Sternal Chest Pain Radiates: No Character: Dyspnea at Exertion, Fast, Sharp/Stabbing Aggravating Factor(s): Exertion, Deep Breaths Alleviating Factor(s): Medication Associated Signs and Symptoms: Positive: Chest Pain, Shortness of Breath, Chills , Lightheadedness, Palpitations, Abdominal Pain. Negative: Fever, Nausea, Back Pain, Vomiting - Additional Pertinent History Primary Care Physician: [id number] - Allergy/Home Medications Allergies/Adverse Reactions: Allergies Allergy/AdvReac Type Severity Reaction Status Date / Time ciprofloxacin Allergy Intermediate Itching Verified 05/08/18 10:12 Sulfa (Sulfonamide Allergy Swelling Verified 05/08/18 10:12 Antibiotics) Home Medications: Home Medications Amiodarone TAB* [Cordarone TAB*] 200 mg PO DAILY 05/08/18 [History Confirmed 09/15] Aspirin EC TAB* [Ecotrin EC Low Dose 81 MG*] 81 mg PO DAILY 05/08/18 [History Confirmed 05/08/18] Atorvastatin* [Lipitor*] 40 mg PO DAILY 05/08/18 [History Confirmed 05/08/18] Colchicine* [Colcrys*] 0.6 mg PO EVERY OTHER DAY 05/08/18 [History Confirmed 09/15] Ibuprofen TAB* [Motrin TAB* 800 MG] 800 mg PO TID PRN 05/08/18 [History Confirmed 05/08/18] Metoprolol Tartrate TAB* [Lopressor TAB*] 25 mg PO DAILY 05/08/18 [History Confirmed 05/08/18] Pantoprazole TAB (NF) [Protonix TAB (NF)] 40 mg PO DAILY 05/08/18 [History Confirmed 05/08/18] Warfarin TAB(*) [Coumadin TAB(*)] 4 mg PO DAILY 05/08/18 [History Confirmed 09/15] PMH/Surg Hx/FS Hx/Imm Hx Endocrine/Hematology History: Denies: Hx Anticoagulant Therapy, Hx Diabetes Cardiovascular History: Reports: Hx Hypercholesterolemia, Hx Hypertension, Other Cardiovascular Problems/Disorders - PT.STATES ? AFIB Denies: Hx Angina, Hx Atrial Fibrillation, Hx Congestive Heart Failure, Hx Coronary Artery Disease, Hx Myocardial Infarction, Hx Peripheral Vascular Disease, Hx Valvular Heart Disease Respiratory History: Denies: Hx Asthma, Hx Chronic Obstructive Pulmonary Disease (COPD) GI History: Reports: Hx Gastroesophageal Reflux Disease History: Denies: Other Problems/Disorders - Gallstones Musculoskeletal History: Denies: Hx Arthritis Sensory History: Reports: Hx Contacts or Glasses Denies: Hx Hearing Aid Opthamlomology History: Reports: Hx Contacts or Glasses EENT History: Denies: Hx Deafness Neurological History: Denies: Hx Headaches, Hx Seizures, Hx Transient Ischemic Attacks (TIA) - Surgical History Surgery Procedure, Year, and Place: appy, tonsillectomy, cardiac bypass 03/11/18 Infectious Disease History: No Infectious Disease History: Denies: Hx Hepatitis, Hx Human Immunodeficiency Virus (HIV), Hx of Known/ Suspected MRSA, Hx Shingles, Hx Tuberculosis, Traveled Outside the [place] in Last 30 Days - Family History Known Family History: Positive: Other - A Fib - Social History Alcohol Use: Rare Substance Use Type: Reports: None Hx Tobacco Use: No Smoking Status (MU): Never Smoked Tobacco Review of Systems Positive: Chills, Skin Diaphoresis. Negative: Fever Negative: Erythema Negative: Sore Throat Positive: Palpitations, Chest Pain Positive: Shortness Of Breath. Negative: Cough Positive: Abdominal Pain, Nausea. Negative: Vomiting Negative: dysuria, hematuria Negative: Myalgia, Edema Negative: Rash Neurological: Other - Positive: dizziness/lightheadedness All Other Systems Reviewed And Are Negative: Yes Physical Exam - Summary Physical Exam Summary: Constitutional: Well-developed, Well-nourished, Alert. (-) Distressed Skin: Warm, Dry, mid-line sternotomy scar HENT: Normocephalic; Atraumatic Eyes: Conjunctiva normal Neck: Musculoskeletal ROM normal neck. (-) JVD, (-) Stridor, (-) Tracheal deviation Cardio: Rhythm regular, rate normal, Heart sounds normal; Intact distal pulses; The pedal pulses are 2+ and symmetric. Radial pulses are 2+ and symmetric. (-) Murmur Pulmonary/Chest wall: Effort normal. (-) Respiratory distress, (-) Wheezes, (-) Rales Abd: Soft, (-), epigastric tenderness, (-) Distension, (-) Guarding, (-) Rebound Musculoskeletal: (-) Edema Lymph: (-) Cervical adenopathy Neuro: Alert, Oriented x3 Psych: Mood and affect Normal Triage Information Reviewed: Yes Vital Signs On Initial Exam: Initial Vitals Temp Pulse Resp BP Pulse Ox 99.2 F 96 19 124/73 95 05/08/18 09:47 05/08/18 09:47 05/08/18 09:47 05/08/18 09:47 05/08/18 09:47 Vital Signs Reviewed: Yes Diagnostics - Vital Signs Vital Signs Temp Pulse Resp BP Pulse Ox 05/08/18 10:04 91 25 140/76 94 05/08/18 09:47 99.2 F 96 19 124/73 95 - Laboratory Result Diagrams: 05/08/18 10:57 05/08/18 10:57 Lab Statement: Any lab studies that have been ordered have been reviewed, and results considered in the medical decision making process. - CT CTA chest/thorax CT Interpretation: Positive (See Comments) CT Interpretation Completed By: Radiologist - No definite pulmonary embolus is noted. There is cardiomegaly with a small pericardial effusion. Moderate size left pleural effusion with compressive atelectasis of the left lower lobe as well as minimal atelectasis in the lingula. Small right pleural effusion is noted. Patient is status post transsternal thoracotomy. Dr. Ellsworth has reviewed this report. - EKG 1018 Cardiac Rate: NL - 91 EKG Rhythm: Sinus Rhythm ST Segment: Non-Specific - T-wave flat v2-v6, new compared to 04/25 EKG Interpretation: No STEMI EKG Comparison: Other - t-wave flat v2-v6, change from 04/25 Re-Evaluation - Re-Evaluation First Eval Re-Evaluation Time: 13:07 Change: Unchanged - discussed admission, stress test, diagnosis, lab and imaging results Comment: discussed admission, stress test, diagnosis, lab and imaging results Chest Pain Course/Dx - Course Course Of Treatment: EKG revealed nl sinus rythym at 91 bpm, t-wave flat in leads v2-v6, which is new when compared to 04/25 EKG results. CTA chest/thorax revealed: 1) No definite pulmonary embolus is noted. 2) There is cardiomegaly with a small pericardial effusion. 3) Moderate size left pleural effusion with compressive atelectasis of the left lower lobe as well as minimal atelectasis in the lingula. 4)Small right pleural effusion is noted. Patient is status post transsternal thoracotomy. Pt given omnipaque 350. 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 Prudent to rule out MO, get nuclear stress test. Discharge - Discharge Plan Referrals: Devin Larsen MD [Primary Care Provider] - Consult Consult: [id number] Dr. Santizo: Accepted admission with intention to do nuclear stress test.
[2018-05-08 11:08] LABS: Hematocrit 37 % (42-52); Mean Corpuscular HGB Conc 33 g/dl (31-36); Mean Corpuscular Hemoglobin 25 pg (27-31); Mean Corpuscular Volume 77 fL (80-94); Mean Platelet Volume 7.4 um3 (7.4-10.4); Platelet Count 311 10^3/ul (150-450); Red Blood Count 4.74 10^6/ul (4.00-5.40); Red Cell Distribution Width 15 % (10.5-15); White Blood Count 12.5 10^3/ul (3.5-10.8)
[2018-05-08] MEDS ORDERED: Iohexol 350* (CONTRAST) 500 ML MDV IV ONE (11:08)
[2018-05-08 11:25] LABS: INR 2.61 (0.77-1.02)
[2018-05-08 11:26] LABS: EGFR Non-African American 75.9 (>60)
[2018-05-08 11:29] LABS: ABS Basophils 0.1 10^3/ul (0-0.2); ABS Eosinophils 0 10^3/ul (0-0.6); ABS Lymphocytes 0.5 10^3/ul (1.0-4.8); ABS Neutrophils 10.8 10^3/ul (1.5-7.7); ABS Nucleated RBC 0 10^3/ul; Eosinophil % 0.1 % (0-6); Lymphocyte % 4.1 % (25-47); Nucleated Red Blood Cells % 0
--- NOTE | 2018-05-08 11:42 | RAD ---
Indication: Chest pain, shortness of breath. Contrast: Administered 83.1 ml of OMNIPAQUE 350 mg/ml CTA of the chest performed after IV contrast administration. Coronal and sagittal reconstructed images were obtained. Inferior thyroid lobes are unremarkable. Pulmonary arterial tree is well opacified. There are no filling defects present to suggest pulmonary embolus. The aorta demonstrates no evidence of aortic dissection. No aneurysmal dilatation of the thoracic aorta is noted. There is a moderate-sized left pleural effusion with atelectasis of the left lower lobe. Cardiomegaly with a small pericardial effusion is noted. There is a small right pleural effusion noted. The lung ha demonstrate no focal nodules. Atelectasis is noted in the left lower lobe as well as in the lingula. IMPRESSION: No definite pulmonary embolus is noted. There is cardiomegaly with a small pericardial effusion. Moderate size left pleural effusion with compressive atelectasis of the left lower lobe as well as minimal atelectasis in the lingula. Small right pleural effusion is noted. Patient is status post transsternal thoracotomy.
[2018-05-08] MEDS ORDERED: Ketorolac INJ* 30 MG/ML 1 ML VIAL IV PUSH ONE (12:56)
[2018-05-08] MEDS ORDERED: Al Hydrox/Mg Hydrox/Simet LIQ* 30 ML UDC PO PRN (15:48)
[2018-05-08] MEDS ORDERED: Ondansetron INJ* 2 MG/ML VIAL IV PRN (15:48)
[2018-05-08] MEDS ORDERED: Acetaminophen TAB* 325 MG PO PRN (15:48)
[2018-05-08] MEDS ORDERED: Atorvastatin* 40 MG TAB PO SCH ×2 (18:18→21:00)
[2018-05-08] MEDS ORDERED: Warfarin TAB(*) 4 MG PO SCH (18:45)
--- NOTE | 2018-05-08 19:04 | HP ---
ADMISSION HISTORY AND PHYSICAL: DATE OF ADMISSION: 05/08/18 PRIMARY CARE PROVIDER: Dr. Larsen. FAUCET POLISHER: Dr. Nunez. CARDIOTHORACIC SURGEON: Dr. Reynoso in [facility]. HEALTHCARE PROXY: Cristal oYung, his . CODE STATUS: Full. SOURCE OF INFORMATION: History obtained from interview with the patient, review of past medical records, discussion with ED provider. RELIABILITY: Good. CHIEF COMPLAINT: Chest pain/epigastric discomfort. HISTORY OF PRESENT ILLNESS: This is a 67-year-old gentleman who underwent successful CABG on 03/11/18 at [facility] with an uncomplicated course who then returned to [facility] on 03/20/18 after an episode of syncope, thought multifactorial in combination of dehydration as well as new metoprolol dose. He returned home and was feeling well until the end of March, returning to [facility] on 04/25/18 with atrial fibrillation and RVR approximately 10 days after stopping amiodarone for atrial fibrillation that was first diagnosed in his postoperative setting. Since that time, he noticed a pain that was sharp, epigastric like, just below xiphoid that was "like a knife being jabbed in" and also like "a spasm." He has been performing cardiac rehab and the pain is always worse with exertion. He has particularly tried to avoid walking up and down his stairs. The pain has continued all day and has worsened over the ensuing days. He returned to the emergency room after seeing his primary care physician to have evaluation of his gastrointestinal system. He had an ultrasound of his liver, which was normal, but was discharged on Protonix. He had pain relief the following day, which he does not attribute to the proton pump inhibitor; however, the pain then returned and continued to be like a stabbing knife in his epigastric region. He again returned to the emergency room. Given the continued severity of the pain, on 05/07/18 received a transthoracic echocardiogram, which noted a small effusion. He received Toradol with pain improvement and was discharged with Motrin and colchicine with a presumptive diagnosis of Emilee's syndrome. He was unable to fill Motrin and colchicine on the day of discharge and returned today to the pharmacy , however on ambulating to the pharmacy he developed worsening pain similar in character to previous pain, it has been persistent over the last 2 weeks, however much more severe and at this time associated with shortness of breath, diaphoresis and lightheadedness. He had no nausea or vomiting. He notes his pain has been worse with position changes, not improved sitting up or lying flat and has been worse with taking a deep breath and there is no association with food. He has had no fevers or chills or other changes of medications. Because of continued pain and its particular association with exertion, hospitalist service was consulted for evaluation. PAST MEDICAL HISTORY: Includes: 1. 6-vessel CABG on 03/11/18 at [facility]. 2. Hypertension. 3. Squamous cell carcinoma. 4. Syncope on 03/20/18. 5. Postop atrial fibrillation. 6. Bilateral lower extremity neuropathy. PAST SURGICAL HISTORY: 1. Excision of left hand squamous cell carcinoma. 2. Tonsillectomy. 3. Appendectomy. HOME MEDICATIONS: Include: 1. Metoprolol 25 mg daily. 2. Ibuprofen 800 mg 3 times a day. 3. Colchicine 0.6 mg every other day, just started yesterday. 4. Coumadin 4 mg daily. 5. Pantoprazole 40 mg daily. 6. Atorvastatin 40 mg daily. 7. Amiodarone 200 mg daily. 8. Aspirin 81 mg daily. ALLERGIES: The patient has allergies to CIPROFLOXACIN and SULFA DRUGS. SOCIAL HISTORY: No tobacco. Drinks about 6 beers per year. 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 FAMILY HISTORY: His mother is elderly and healthy. His father had atrial fibrillation and melanoma. REVIEW OF SYSTEMS: As per HPI, otherwise all other systems negative. PHYSICAL EXAMINATION GENERAL: Well appearing man, sitting up, interactive, pleasant, no apparent distress. VITAL SIGNS: In the emergency room, 120/70, heart rate 88, respiratory rate of 16, 96% on room air, T-max in the emergency room is 99.2. HEENT: His oropharynx is clear. He has mucous membranes. Sclerae are anicteric. NECK: He has non-elevated JVD. LUNGS: Clear to auscultation. HEART: Regular rate and rhythm. No murmurs, rubs, or gallops. ABDOMEN: Soft, nontender, nondistended. He has no tenderness on chest palpation. EXTREMITIES: Warm and well perfused without clubbing, cyanosis, or edema. NEUROLOGIC: He is alert and oriented x3. He has no agitation, anxiety, or depression. LABORATORY DATA: Labs reviewed, notable for CRP of 148, increased from 88, 24 hours prior. Troponin I 0.02 on 2 consecutive checks. His INR is 2.6. White blood cell count is 12.5, hemoglobin 12. PERTINENT DIAGNOSTIC DATA: CTA of the chest and thorax, no apparent pulmonary embolism. He has cardiomegaly with small pericardial effusion. There is moderate sized left pleural effusion with compressive atelectasis in the left lower lobe as well as minimal atelectasis in the lingula. Small right pleural effusion is noted. The patient with transthoracic echocardiogram 24 hours prior to presentation, notable for moderate concentric left ventricular hypertrophy, left ventricle is hyperdynamic, estimated EF is greater than 65%, aortic valve leaflets are mildly thickened, there is mild aortic regurgitation, trace tricuspid regurgitation, small pericardial effusion, left pleural effusion is present, mild dilatation in the ascending aorta, mild dilatation in the aortic root, the right ventricular global systolic function is mildly reduced similar to except for a small pericardial effusion that is slightly larger and RV function seems to be slightly reproduced at this time. EKG notable for normal sinus rhythm, normal limit axis, good R-wave progression , T- wave flattening in V4 through V5, no ST elevations or RI depressions. ASSESSMENT AND PLAN: 1. Chest pain. Symptoms are consistent with Emilee's, post-pericardiotomy with pericarditis including the prolonged nature, the timing of its onset, elevated CRP, leukocytosis, small pericardial effusion and pleural effusion as well as its worsening with inspiration/pleuritic in nature. The pain was relieved with Toradol in the emergency room yesterday and again today. However , its association with exertion, absence of EKG findings and its particular association with lightheadedness, diaphoresis, and shortness of breath today with ambulating to the pharmacy is particularly worrisome for ischemic etiology. The ED was in contact with Dr. Nunez, the patient's primary manager ccu today who recommended a nuclear cardiac stress test, which I agree with in light of aforementioned symptoms. However, I will simultaneously treat for Emilee's syndrome. I am going to change Motrin high dose to aspirin 750 mg 3 times a day as well as colchicine 0.6 mg twice daily. N.p.o. at midnight and plan for chemical stress with nuclear imaging tomorrow. 2. Atrial fibrillation. Continue amiodarone as well as Coumadin. Continue Protonix for GI prophylaxis in the setting of high dose aspirin and Coumadin. 3. Moderate left pleural effusions, unchanged since March, suspect status post CABG, monitor, no need for thoracentesis at this time. 4. Hypertension. Continue metoprolol as indicated above as well for atrial fibrillation. 5. DVT prophylaxis is Coumadin. Check INR in the morning. [id number]/[facility] #: [id number] [facility]
[2018-05-08] MEDS: Aspirin TAB* 325 MG PO SCH (20:56)
[2018-05-08] MEDS: Metoprolol Tartrate TAB* 25 MG PO SCH (20:57)
[2018-05-08] MEDS ORDERED: Aspirin TAB* 325 MG PO SCH (21:00)
[2018-05-08] MEDS: Colchicine* 0.6 MG TAB PO SCH (21:10)
[2018-05-09 06:56] LABS: Hematocrit 36 % (42-52); Mean Corpuscular HGB Conc 33 g/dl (31-36); Mean Corpuscular Hemoglobin 26 pg (27-31); Mean Corpuscular Volume 78 fL (80-94); Platelet Count 270 10^3/ul (150-450); Red Cell Distribution Width 15 % (10.5-15); White Blood Count 7.5 10^3/ul (3.5-10.8)
[2018-05-09 06:59] LABS: INR 2.73 (0.77-1.02)
[2018-05-09 07:13] LABS: EGFR Non-African American 84.7 (>60)
[2018-05-09 07:32] LABS: ABS Basophils 0 10^3/ul (0-0.2); ABS Eosinophils 0.2 10^3/ul (0-0.6); ABS Monocytes 0.8 10^3/ul (0-0.8); ABS Neutrophils 5.5 10^3/ul (1.5-7.7); ABS Nucleated RBC 0 10^3/ul; Lymphocyte % 13.3 % (25-47); Nucleated Red Blood Cells % 0
[2018-05-09] MEDS ORDERED: Aminophylline IV* 25 MG/ML 10 ML VIAL ONE (08:25)
[2018-05-09] MEDS ORDERED: Regadenoson* 0.4 MG/5 ML SYRINGE ONE ×2 (08:25→09:15)
[2018-05-09] MEDS ORDERED: Amiodarone TAB* 200 MG PO SCH (09:00)
[2018-05-09] MEDS ORDERED: Metoprolol Tartrate TAB* 25 MG PO SCH (09:00)
[2018-05-09] MEDS ORDERED: Atorvastatin* 40 MG TAB PO SCH (09:00)
[2018-05-09] MEDS ORDERED: Omeprazole CAP* 20 MG PO SCH (09:00)
[2018-05-09] MEDS ORDERED: LORazepam INJ* 2 MG/ML 1 ML VIAL ONE (09:15)
--- NOTE | 2018-05-09 10:21 | RAD ---
Indication: Chest pain after cardiac bypass. Myocardial perfusion scan was performed utilizing 1 day protocol. Rest myocardial perfusion was performed without intravenous injection of 10.6 mCi of technetium 99 and tetrofosmin. Pharmacological stress was applied and 25.7 mCi of technetium 99m tetrofosmin was injected for the stress portion of study. There is a lateral wall defect appears to BE fixed defect of moderate size. No evidence of reversible change is noted. The ejection fraction at stress is 67%. Evaluation of wall motion demonstrates no evidence of wall motion abnormality. IMPRESSION: Moderate-sized fixed defect in the lateral wall. No reversible change is noted. Ejection fraction of 67% with no evidence of wall motion abnormality. ASSESSMENT: Intermediate risk Based on imaging criteria from ACC/AHA 2002 Guideline Update for the Management of Patients With Chronic Stable Angina Table 23. Noninvasive Risk Stratification.
[2018-05-09] MEDS: Colchicine* 0.6 MG TAB PO SCH (10:42)
[2018-05-09] MEDS: Metoprolol Tartrate TAB* 25 MG PO SCH (10:43)
[2018-05-09] MEDS: Aspirin TAB* 325 MG PO SCH ×2 (10:43→14:50)
[2018-05-09 11:27] VITALS: BP 145/81
--- NOTE | 2018-05-09 13:02 | CONS ---
CC: Dr. Devin Larsen; Dr. Leoncio Nunez CARDIOLOGY CONSULTATION: DATE OF CONSULT: 05/09/18 REFERRAL PHYSICIAN: Dr. Lenard Presley. 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 HISTORY OF PRESENT ILLNESS: I was kindly asked by Dr. Presley to see this patient for Cardiology consultation regarding chest pain in this patient who had CABG on 03/11/18 and concern for myopericarditis. The patient states that he had six-vessel coronary artery bypass grafting surgery on 03/11/18 after having had syncope. He began to have subxiphoid pain approximately 2 weeks ago. He was then treated for GERD and had some transient improvement, but then his pain symptoms recurred despite use of H2RA followed by PPI. He also has had at least 1 episode of paroxysmal atrial fibrillation, so he was resumed on his postoperative amiodarone by his regular fire protection fabricator, Dr. Nunez. 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 He had improvement with that, but then had recurrence of his chest pain symptoms yesterday and then came back to the hospital because he had cold sweats. That was after only 1 day of the anti-inflammatory therapy. Here, he is ruled out for an W[place] and has a cardiac chemical nuclear stress test with the results pending per Radiology. Currently, he has no pain at his subxiphoid process as prior since using high dose aspirin and colchicine, but does note some very minor chest tightness diffuse. Of note, the patient is accompanied by son with his verbal consent. PAST MEDICAL HISTORY: Includes a six-vessel CABG (anatomy currently unknown) after having found to have significant diffuse coronary artery disease following syncope while eating on 03/11/18 at [facility]. He has subsequently had at least 1 episode of paroxysmal atrial fibrillation, for which he was restarted on amiodarone. 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 PAST SURGICAL HISTORY: Excision of left hand squamous cell carcinoma in the past, tonsillectomy, appendectomy. OUTPATIENT MEDICATIONS: 1. Metoprolol 25 mg once a day. 2. Ibuprofen 800 mg p.o. t.i.d. 3. Colchicine 0.6 mg p.o. every other day. 4. Coumadin 4 mg once a day. 5. Protonix 40 mg once a day. 6. Atorvastatin 40 mg once a day. 7. Amiodarone 200 mg once a day. 8. Aspirin 81 mg once a day. ALLERGIES TO MEDICATIONS: SULFA and the patient believes possibly allergic to CIPRO. He denies shrimps or seafood allergy. FAMILY HISTORY: The patient's father had a history of atrial fibrillation, felt due to B12 deficiency, and from melanoma. There is a family history of stroke in his grandmother. No family history of W[place]. SOCIAL HISTORY: He does not smoke cigarettes, abuse alcohol. No use of illicit drugs. He has been for 35 years. 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 He does exercise with lifting weights and is planning to restart cardiac rehabilitation when he feels better. REVIEW OF SYSTEMS: The patient denies personal history of stroke. Denies vomiting of blood, coughing up blood, bright red blood per rectum, bleeding stomach ulcers. He has a history of renal calculi. He denies cholelithiasis. He denies asthma, emphysema, pneumonia, tuberculosis, sleep apnea, home oxygen, diabetes. He has a history of hypertension. He has had prior CABG surgery as described above on 03/11/18 x6 vessels recently. He was told that he had murmur as a child. He has a long history of PVCs. He denies psychiatric illnesses, lupus, psoriasis, seizures, Parkinson's disease, myasthenia gravis, thyroid disorders, liver disorders, kidney disorders, claudication symptoms, pulmonary emboli, deep vein thrombosis, peripheral arterial disease, peripheral edema. He denies GERD symptoms. All other review of systems are negative, except as described above x14 systems. PHYSICAL EXAM: General: He is a pleasant gentleman, in no acute distress at rest. HEENT shows the cranium is normocephalic and atraumatic. He has moist mucosal membranes. Neck veins are not distended. There are no carotid bruits. Visible skin warm and perfused. Affect appropriate. He appears oriented. No significant kyphoscoliosis on back exam. Lungs are clear to auscultation. No wheezes. No rales. Cardiac: S1, S2. Regular rate. Soft 3-component rub heard. There is no murmurs, no gallops. PMI is nondisplaced. Abdomen is soft and nondistended. Extremities with no more than trivial peripheral edema. Pulses appear grossly intact. DIAGNOSTIC STUDIES/LAB DATA: Cardiac chemical nuclear stress test performed earlier today is pending. Transthoracic echocardiogram completed on 05/07/18 showed hyperdynamic left ventricular ejection fraction greater than 65%, mild right atrial dilation, mild aortic insufficiency, small pericardial effusion, left pleural effusion, mild dilatation of the ascending aorta, mild dilatation of the aorta group, moderate concentric left ventricular hypertrophy, mild dilatation of the ascending aorta. No signs of hemodynamic compromise from the pericardial effusion. A 12-lead EKG completed on 05/08/18 at 10:18 at [facility] shows sinus rhythm at 91 beats per minute with first degree AV block, PA interval of 270 milliseconds, probable left atrial enlargement, minor diffuse T-wave changes. No clear PA segment elevation in aVR. Blood work completed on 04/29/18 showed sodium 139, potassium 4.0, chloride 104 , bicarbonate 30, BUN 15, creatinine 0.90. Troponin 0.02 followed by 0.02 followed by 0.01. INR 2.73. White blood cell count 7.5, hematocrit 36, and platelet count 270. IMPRESSION: Mr. Young is a pleasant 67-year-old gentleman with a history of six- vessel bypass on 03/11/18, now found to have myopericarditis including with rub on exam, small pericardial effusion, and elevated inflammatory markers with CRP of 148.9 on 05/08/18 and 176.54 on 05/09/18. The patient is clinically much improved with use of anti-inflammatory agents with high dose aspirin and colchicine and W[place] has been ruled out. RECOMMENDATIONS: 1. Continue amiodarone given recent recurrence of paroxysmal atrial fibrillation postoperatively as well as Coumadin and the patient is maintaining sinus rhythm at this time. 2. Continue aspirin, statin, beta-anton regarding his history of coronary artery disease, status post bypass and the patient does have hyperdynamic left ventricular ejection fraction. 3. Continue colchicine and high dose aspirin as above regarding his postoperative myopericarditis, i.e., Emilee's syndrome and I think it is reasonable to continue the PPI now as well, as there is some question of whether the patient has had gastroesophageal reflux disease symptoms additionally. 4. Await cardiac chemical nuclear stress test performed earlier today and if no significant ischemia is seen, the patient can be discharged home and follow up with his usual fire protection fabricator, Dr. Nunez. I have discussed the case with the patient and the patient appears to be in agreement with these recommendations. I have discussed the case with Dr. Presley. Dear Dr. Lenard Presley, many thanks for asking me to participate in the cardiovascular consultative care of Mr. Young. Please do not hesitate to contact me if you have any questions or concerns regarding the patient's cardiovascular consultative care. [id number]/[facility] #: [id number] MTDD
[2018-05-09] MEDS ORDERED: Warfarin TAB(*) 4 MG PO SCH (17:00)
--- NOTE | 2018-05-10 04:38 | DS ---
CC: Dr. Larsen; Dr. Nunez * DISCHARGE SUMMARY: DATE OF ADMISSION: 05/08/18 DATE OF DISCHARGE: 05/09/18 PRIMARY CARE PROVIDER: Dr. Larsen. FLOW NURSE: Dr. Nunez. PRIMARY DIAGNOSIS: Emilee syndrome - pericarditis. SECONDARY DIAGNOSES: Include CAD, atrial fibrillation, left pleural effusion, hypertension. MEDICATIONS: At discharge include: 1. Coumadin 4 mg in the evening. 2. Amiodarone 200 mg in the morning. 3. Pantoprazole 40 mg in the morning. 4. Metoprolol tartrate 25 mg twice daily with meals. 5. Atorvastatin 40 mg in the evening. 6. Colcrys 0.6 mg twice daily. 7. Aspirin 325 mg 3 times a day. PERTINENT LABORATORY DATA: White blood cell count on the day of discharge 7.5. ESR 53. CRP 176.5. Troponin I 0.02 or less on 3 consecutive checks. IMAGING STUDIES PERFORMED DURING HOSPITAL STAY: CTA of the chest and thorax, impression: No definite pulmonary embolism. There is cardiomegaly with a small pericardial effusion, moderate sized left pleural effusion with a compressive atelectasis at the left lower lobe as well as minimal atelectasis of the lingula. A small right pleural effusion was noticed. PROCEDURES PERFORMED DURING THE HOSPITAL STAY: Chemical stress with nuclear imaging: Impression: Intermediate risk with ejection fraction of 67%. There is a moderate-sized fixed defect in the lateral wall. No reversible changes noted. This stress test was discussed with Dr. Lee prior to discharge. CONSULTATIONS DURING THE COURSE OF THE HOSPITAL STAY: Cardiology: Please see their notes for complete details pertaining to the consultation. HISTORY OF PRESENT ILLNESS AND HOSPITAL COURSE: A 67-year-old gentleman with past medical history of CAD status post six-vessel CABG in February 2018, several presentations to the hospital in the setting of chest pain over the last 2 weeks , returning again with a knife-like jabbing pain described in the subxiphoid area that became acutely worse associated with diaphoresis, nausea, lightheadedness and shortness of breath while ambulating in from the parking lot to the pharmacy to sweet pickle maker medication for presumed Emilee syndrome/ pericarditis. The patient presented to the hospital, was admitted, had three negative troponins, underwent nuclear stress test that did not indicate any reversible areas of ischemia. In discussion with Cardiology, it was felt that the patient's symptom is almost consistent with pericarditis and treatment with high dose aspirin as well as colchicine is proper therapy. Of note, the patient had been discharged with Motrin and colchicine from his previous emergency room stay, but had not yet filled or taken that medication. He only began the medication after hospital stay. At the time of discharge, the patient 's pain had improved. He was then started on Protonix in the setting of this xiphoid/abdominal/chest discomfort, which he will be continued on the setting of high dose NSAID/aspirin. There is an interaction of atorvastatin with colchicine which was discussed with the patient that he should be cognizant of any muscle pains, weakness or dark urine that may develop. We also discussed colchicine toxicity which would present as GI toxicity including diarrhea. He is to present if any of these symptoms should arise. The benefits of continuing both medications was agreed to outweigh discontinuation of either. The patient is to follow up with his primary care physician as well as Dr. Nunez for tapering of his aspirin therapy. This was discussed at length with the patient. He understands that the high dose aspirin is not meant to be indefinite. The patient is paying britton for his medications currently and he was seen in conjunction with social work prior to his discharge. He does not have Medicare Part D. A referral was made to have Medicaid counselor who may assist the patient further receive insurance products to mitigate external cost. At followup please; 1. Follow inflammatory markers and symptoms, decrease NSAID dose as necessary. 2. No labs or vitals that need followup. Reasons to return to the hospital include, but are not limited to, increasing or worsening chest pain, shortness of breath, nausea, vomiting, lightheadedness , loss of consciousness, near loss of consciousness, muscle aches, dark urine, bleeding from any source, inability to obtain or tolerate medication discussed with the patient. TIME SPENT: Greater than 60 minutes were spent discharging this patient; greater than half was spent [id number] with the patient. [id number]/[facility] #: [id number] MTDD
== END 2018-05-09 16:03 | disposition home or self-care (01) ==
LOC: ED 09:37 → MEDTELE 15:48
PROVIDERS: ADMIT Internal Medicine; ATTEND Internal Medicine
DX: I24.1 Dressler's syndrome (principal); I25.10 Atherosclerotic heart disease of native coronary artery without angina pectoris; I48.91 Unspecified atrial fibrillation; J90 Pleural effusion, not elsewhere classified; I10 Essential (primary) hypertension; Z79.82 Long term (current) use of aspirin; Z79.01 Long term (current) use of anticoagulants; R06.02 Shortness of breath; Z88.6 Allergy status to analgesic agent
CPT/HCPCS: 36415; 71275; 78452; 80048; 80053; 83605; 84484; 85025; 85610; 85652; 85730; 86140; 87641; 93005; 93017; 96374; 96375; 99283; A9270-GY; A9502; G0378; J0280; J1885; J2060; J2785; Q9967